=== PATIENT | female | born 1955 | race Caucasian/White ===

== ENCOUNTER 2020-02-24 14:05 | Inpatient (IN) | payer MEDICARE, OTHER ==
--- NOTE | 2020-02-24 14:07 | ERPHSYRPT ---
- History of Present Illness Time Seen by Provider: 02/24/20 14:07 Historian: patient, family Exam Limitations: clinical condition Physician History: This is a 64-year-old white female who presents with approximately 5 to 6-day history of right flank pain and right-sided abdominal pain. Patient has had her gallbladder removed. She has all her other intra-abdominal organs. The pain worsened today. She is also had associated diaphoresis. She denies chest pain and denies shortness of breath. Patient has never had anything like this before. She is nauseous. The pain is now sharp and cramping type pain and unrelenting. She has not had any urinary symptoms other than the flank pain on the right side. She has had no diarrhea. She has had no exposure to nora viduals with similar symptoms. Patient's only medication is meloxicam. She has had no new medications prescribed to her. She is writhing in pain in her hospital bed. Timing/Duration: day(s) (5 to 6 days), worse Activities at Onset: none Quality: cramping, stabbing Abdominal Pain Onset Location: RUQ, RLQ, flank (Right) Pain Radiation: no radiation Severity of Pain-Max: moderate Severity of Pain-Current: moderate Associated Symptoms: back, diaphoresis, nausea, No chest pain, No diarrhea, No fever/chills, No shortness of breath, No vomiting, No weakness Previous symptoms: no prior history Allergies/Adverse Reactions: No Known Drug Allergies Allergy (Unverified 02/24/20 14:07) Home Medications: Meloxicam 1 ea DAILY 02/24/20 [History] Travel Risk - International Travel Have you traveled outside of the country in past 3 weeks: No - Coronavirus Screening Are you exhibiting any of the following symptoms?: No Close contact with a COVID-19 positive Pt in past 14-21 Days: No - Review of Systems Constitutional: No Symptoms Eyes: No Symptoms Ears, Nose, & Throat: No Symptoms Respiratory: No Symptoms, No Cough, No Dyspnea Cardiac: No Symptoms, No Chest Pain Abdominal/Gastrointestinal: Abdominal Pain, Nausea, Vomiting, No Diarrhea, No Constipation Genitourinary Symptoms: Flank Pain (Right side) Musculoskeletal: No Symptoms Skin: No Symptoms Neurological: No Symptoms Psychological: No Symptoms Endocrine: No Symptoms Hematologic/Lymphatic: No Symptoms Immunological/Allergic: No Symptoms All Other Systems: Reviewed and Negative - Past Medical History Neurological History: No Pertinent History ENT History: No Pertinent History Cardiac History: No Pertinent History Respiratory History: No Pertinent History Endocrine Medical History: No Pertinent History Musculoskeletal History: No Pertinent History GI Medical History: No Pertinent History History: No Pertinent History Psycho-Social History: No Pertinent History Female Reproductive Disorders: No Pertinent History - Past Surgical History Neuro Surgical History: No Pertinent History Cardiac: No Pertinent History Respiratory: No Pertinent History Gastrointestinal: No Pertinent History Genitourinary: No Pertinent History Musculoskeletal: No Pertinent History Female Surgical History: No Pertinent History - Nursing Vital Signs Nursing Vital Signs: Initial Vital Signs Pulse Rate 82 02/24/20 14:09 Respiratory Rate 22 02/24/20 14:09 Blood Pressure 127/71 02/24/20 14:09 O2 Sat by Pulse Oximetry 98 02/24/20 14:09 Pain Scale Pain Intensity 4 - Physical Exam General Appearance: moderate distress, alert, anxiety Eye Exam: PERRL/EOMI, eyes nml inspection Ears, Nose, Throat Exam: normal ENT inspection, moist mucous membranes Neck Exam: normal inspection, non-tender, supple, full range of motion Respiratory Exam: normal breath sounds, lungs clear, airway intact, No chest tenderness, No respiratory distress Cardiovascular Exam: regular rate/rhythm, normal heart sounds, normal peripheral pulses Gastrointestinal/Abdomen Exam: soft, normal bowel sounds, tenderness, No guarding, No rebound Pelvic Exam: not done Rectal Exam: not done Back Exam: normal inspection, normal range of motion, CVA tenderness (Right), No vertebral tenderness Extremity Exam: normal inspection, normal range of motion, pelvis stable Neurologic Exam: alert, oriented x 3, cooperative, javascript software engineer II-XII nml as tested, sensation nml Skin Exam: diaphoresis Lymphatic Exam: No adenopathy SpO2 Interpretation: normal O2 Delivery: Room Air - Course Nursing assessment & vital signs reviewed: Yes EKG Interpreted by Me: RATE (64), Sinus Rhythm, NORMAL AXIS, NORMAL INTERVALS, NORMAL QRS, Other (There is not a comparison EKG available. Patient has no evidence of any acute ischemia.) Ordered Tests: Active Orders 24 hr Category Date Time Status EKG-ER Only STAT Care 02/24/20 14:08 Active IV Insertion STAT Care 02/24/20 14:08 Active ABDOMEN AND PELVIS W/0 CONTRAS [CT] Stat Exams 02/24/20 14:19 Taken CHEST 1 VIEW (PORTABLE) Stat Exams 02/24/20 14:09 Taken CHEST WITH CONTRAST [CT] Stat Exams 02/24/20 14:52 Taken AMYLASE Stat Lab 02/24/20 14:15 Completed BLOOD CULTURE Stat Lab 02/24/20 16:51 Ordered CBC W DIFF Stat Lab 02/24/20 14:15 Completed CMP Stat Lab 02/24/20 14:15 Completed D-DIMER QUANTITATIVE Stat Lab 02/24/20 14:15 Completed LIPASE Stat Lab 02/24/20 14:15 Completed Lactic Acid Stat Lab 02/24/20 14:08 Completed Manual Differential NC Stat Lab 02/24/20 14:15 Completed TROPONIN Q3H Lab 02/24/20 14:15 Completed TROPONIN Q3H Lab 02/24/20 16:51 Completed TROPONIN Q3H Lab 02/24/20 20:15 Ordered TROPONIN Q3H Lab 02/24/20 23:15 Ordered TROPONIN Q3H Lab 02/25/20 02:15 Ordered UA W/RFX UR CULTURE Stat Lab 02/24/20 17:26 Completed Transfer Order Routine Transfer 02/24/20 Ordered Medication Summary Generic Name Dose Route Start Last Admin Trade Name Freq PRN Reason Stop Dose Admin Sodium Chloride 1,000 mls @ 100 mls/hr 02/24/20 14:15 02/24/20 14:28 Sodium Chloride 0.9% 1000 Ml IV 03/25/20 14:14 100 mls/hr .Q10H GABRIEL Administration Discontinued Medications Generic Name Dose Route Start Last Admin Trade Name Freq PRN Reason Stop Dose Admin Hydromorphone HCl 1 mg 02/24/20 14:20 02/24/20 14:31 Hydromorphone 1 Mg/Ml Ampule IV 02/24/20 14:21 1 mg STAT ONE Administration Hydromorphone HCl Confirm 02/24/20 14:25 Hydromorphone 1 Mg/Ml Ampule Administered 02/24/20 14:26 Dose 1 mg .ROUTE .STK-MED ONE Ceftriaxone Sodium/Dextrose 1 g in 50 mls @ 100 mls/hr 02/24/20 16:21 02/24/20 17:42 Rocephin 1 Gm-D5w 50 Ml Bag IV 02/24/20 16:50 100 mls/hr STAT STA Infusion Ceftriaxone Sodium/Dextrose Confirm 02/24/20 16:26 Rocephin 1 Gm-D5w 50 Ml Bag Administered 02/24/20 16:27 Dose 1 g in 50 mls @ ud IV .STK-MED ONE Lorazepam 1 mg 02/24/20 15:46 02/24/20 17:13 Ativan 2 Mg/1 Ml Vial IV 02/24/20 15:47 Not Given STAT ONE Lorazepam Confirm 02/24/20 16:10 Ativan 2 Mg/1 Ml Vial Administered 02/24/20 16:11 Dose 2 mg .ROUTE .STK-MED ONE Morphine Sulfate 4 mg 02/24/20 14:50 02/24/20 14:55 Morphine Sulfate 4 Mg Inj IV 02/24/20 14:51 4 mg STAT ONE Administration Morphine Sulfate Confirm 02/24/20 14:54 Morphine Sulfate 4 Mg Inj Administered 02/24/20 14:55 Dose 4 mg .ROUTE .STK-MED ONE Ondansetron HCl 4 mg 02/24/20 14:08 02/24/20 14:30 Zofran 4 Mg/2 Ml Vial IV 02/24/20 14:09 4 mg STAT ONE Administration Ondansetron HCl Confirm 02/24/20 14:24 Zofran 4 Mg/2 Ml Vial Administered 02/24/20 14:25 Dose 4 mg .ROUTE .STK-MED ONE Promethazine HCl 25 mg 02/24/20 16:22 02/24/20 16:27 Phenergan 25 Mg Inj IM 02/24/20 16:23 25 mg STAT ONE Administration Promethazine HCl Confirm 02/24/20 16:26 Phenergan 25 Mg Inj Administered 02/24/20 16:27 Dose 25 mg .ROUTE .STK-MED ONE Lab/Rad Data: Laboratory Result Diagrams 02/24/20 14:15 02/24/20 14:15 Laboratory Results 02/24/20 02/24/20 02/24/20 Range/Units 17:26 17:14 16:51 WBC (4.0-10.5) K/mm3 RBC (4.1-5.4) M/mm3 Hgb (12.0-16.0) gm/dl Hct (35-47) % MCV (78-100) fl MCH (26-32) pg MCHC (32-36) g/dl RDW (11.5-14.0) % Plt Count (150-450) K/mm3 MPV (7.5-11.0) fl Segmented Neutrophils (36.0-66.0) % Band Neutrophils (0.0-2.0) % Lymphocytes (Manual) (24-44) % Monocytes (Manual) (0.0-12.0) % Platelet Estimate (NORMAL) RBC Morphology D-Dimer (215-500) ng/mL Sodium (137-145) mmol/L Potassium (3.5-5.1) mmol/L Chloride (98-107) mmol/L Carbon Dioxide (22-30) mmol/L Anion Gap (5-15) MEQ/L BUN (7-17) mg/dL Creatinine (0.52-1.04) mg/dL Estimated GFR ML/MIN Glucose (74-106) mg/dL Lactic Acid (0.4-2.0) Calcium (8.4-10.2) mg/dL Total Bilirubin (0.2-1.3) mg/dL AST (14-36) U/L ALT (0-35) U/L Alkaline Phosphatase (38-126) U/L Troponin I < 0.012 (0.000-0.034) ng/mL Serum Total Protein (6.3-8.2) g/dL Albumin (3.5-5.0) g/dL Amylase (30-110) U/L Lipase (23-300) U/L Urine Color YELLOW (YELLOW) Urine Appearance CLEAR (CLEAR) Urine pH 5.0 (5-6) Ur Specific [place] 1.010 (1.005-1.025) Urine Protein NEGATIVE (Negative) Urine Ketones SMALL (NEGATIVE) Urine Blood NEGATIVE (0-5) Justus/ul Urine Nitrite NEGATIVE (NEGATIVE) Urine Bilirubin NEGATIVE (NEGATIVE) Urine Urobilinogen 2 (0-1) mg/dL Ur Leukocyte Esterase TRACE (NEGATIVE) Urine WBC (Auto) 3-5 (0-5) /HPF Urine RBC (Auto) 3-5 (0-2) /HPF U Epithel Cells (Auto) RARE (FEW) /HPF Urine Bacteria (Auto) RARE (NEGATIVE) /HPF Urine Mucus (Auto) SLIGHT (NEGATIVE) /HPF Urine Culture Reflexed NO (NO) Urine Glucose NEGATIVE (NEGATIVE) mg/dL SARS-CoV-2 (PCR) POSITIVE A (NEGATIVE) 02/24/20 02/24/20 02/24/20 Range/Units 14:15 14:15 14:15 WBC (4.0-10.5) K/mm3 RBC (4.1-5.4) M/mm3 Hgb (12.0-16.0) gm/dl Hct (35-47) % MCV (78-100) fl MCH (26-32) pg MCHC (32-36) g/dl RDW (11.5-14.0) % Plt Count (150-450) K/mm3 MPV (7.5-11.0) fl Segmented Neutrophils (36.0-66.0) % Band Neutrophils (0.0-2.0) % Lymphocytes (Manual) (24-44) % Monocytes (Manual) (0.0-12.0) % Platelet Estimate (NORMAL) RBC Morphology D-Dimer 1319 H* (215-500) ng/mL Sodium 138 (137-145) mmol/L Potassium 4.0 (3.5-5.1) mmol/L Chloride 101 (98-107) mmol/L Carbon Dioxide 27 (22-30) mmol/L Anion Gap 13.6 (5-15) MEQ/L BUN 24 H (7-17) mg/dL Creatinine 0.85 (0.52-1.04) mg/dL Estimated GFR > 60.0 ML/MIN Glucose 121 H (74-106) mg/dL Lactic Acid (0.4-2.0) Calcium 9.1 (8.4-10.2) mg/dL Total Bilirubin 0.80 (0.2-1.3) mg/dL AST 90 H (14-36) U/L ALT 84 H (0-35) U/L Alkaline Phosphatase 93 (38-126) U/L Troponin I < 0.012 (0.000-0.034) ng/mL Serum Total Protein 7.7 (6.3-8.2) g/dL Albumin 4.4 (3.5-5.0) g/dL Amylase 127 H (30-110) U/L Lipase 214 (23-300) U/L Urine Color (YELLOW) Urine Appearance (CLEAR) Urine pH (5-6) Ur Specific [place] (1.005-1.025) Urine Protein (Negative) Urine Ketones (NEGATIVE) Urine Blood (0-5) Justus/ul Urine Nitrite (NEGATIVE) Urine Bilirubin (NEGATIVE) Urine Urobilinogen (0-1) mg/dL Ur Leukocyte Esterase (NEGATIVE) Urine WBC (Auto) (0-5) /HPF Urine RBC (Auto) (0-2) /HPF U Epithel Cells (Auto) (FEW) /HPF Urine Bacteria (Auto) (NEGATIVE) /HPF Urine Mucus (Auto) (NEGATIVE) /HPF Urine Culture Reflexed (NO) Urine Glucose (NEGATIVE) mg/dL SARS-CoV-2 (PCR) (NEGATIVE) 02/24/20 02/24/20 Range/Units 14:15 14:08 WBC 6.4 (4.0-10.5) K/mm3 RBC 4.58 (4.1-5.4) M/mm3 Hgb 14.5 (12.0-16.0) gm/dl Hct 43.1 (35-47) % MCV 94.1 (78-100) fl MCH 31.7 (26-32) pg MCHC 33.6 (32-36) g/dl RDW 12.7 (11.5-14.0) % Plt Count 182 (150-450) K/mm3 MPV 10.2 (7.5-11.0) fl Segmented Neutrophils 59 (36.0-66.0) % Band Neutrophils 2 (0.0-2.0) % Lymphocytes (Manual) 30 (24-44) % Monocytes (Manual) 9 (0.0-12.0) % Platelet Estimate NORMAL (NORMAL) RBC Morphology NORMAL D-Dimer (215-500) ng/mL Sodium (137-145) mmol/L Potassium (3.5-5.1) mmol/L Chloride (98-107) mmol/L Carbon Dioxide (22-30) mmol/L Anion Gap (5-15) MEQ/L BUN (7-17) mg/dL Creatinine (0.52-1.04) mg/dL Estimated GFR ML/MIN Glucose (74-106) mg/dL Lactic Acid 1.4 (0.4-2.0) Calcium (8.4-10.2) mg/dL Total Bilirubin (0.2-1.3) mg/dL AST (14-36) U/L ALT (0-35) U/L Alkaline Phosphatase (38-126) U/L Troponin I (0.000-0.034) ng/mL Serum Total Protein (6.3-8.2) g/dL Albumin (3.5-5.0) g/dL Amylase (30-110) U/L Lipase (23-300) U/L Urine Color (YELLOW) Urine Appearance (CLEAR) Urine pH (5-6) Ur Specific [place] (1.005-1.025) Urine Protein (Negative) Urine Ketones (NEGATIVE) Urine Blood (0-5) Justus/ul Urine Nitrite (NEGATIVE) Urine Bilirubin (NEGATIVE) Urine Urobilinogen (0-1) mg/dL Ur Leukocyte Esterase (NEGATIVE) Urine WBC (Auto) (0-5) /HPF Urine RBC (Auto) (0-2) /HPF U Epithel Cells (Auto) (FEW) /HPF Urine Bacteria (Auto) (NEGATIVE) /HPF Urine Mucus (Auto) (NEGATIVE) /HPF Urine Culture Reflexed (NO) Urine Glucose (NEGATIVE) mg/dL SARS-CoV-2 (PCR) (NEGATIVE) - Progress Progress: pain not gone completely, re-examined Progress Note: 02/24/20 14:54 Second EKG time was 2:45 PM on 02/24/2020. The heart rate is now 51. 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 There is no evidence of any acute ischemic changes on the current EKG or the one that was performed just prior to this EKG. This is the second EKG. There are no significant changes when compared to the first EKG. 02/24/20 14:56 Chest x-ray reveals no evidence of any acute pulmonary process 02/24/20 16:28 CAT scan of the chest with IV contrast reveals mild to moderate upper and lower bilateral pulmonary opacities consistent with pneumonia. There are no pulmonary emboli and there is no aortic dissection. The CAT scan of the abdomen pelvis shows the moderate lower bilateral pulmonary opacities consistent with pneumonia. There is a normal appendix and no evidence of any acute intra- abdominal process or pathology. Medical decision making: I spoke with Dr. Richey, she is the admitting hospitalist today. Our plan is to admit the patient to the hospital. However, we will obtain a rapid COVID 19 test. If it is positive we will contact the [facility] hospitalist operations administrator for admission. If this is negative then Dr. Velazquez will be admitting this patient into the hospital. We will start her on Rocephin intravenously as well as Zithromax antibiotic. 02/24/20 18:09 Medical decision making: The COVID-19 test returned positive. I spoke with Dr. Vela who will admit the patient into the hospital we will continue Rocephin and azithromycin. We will continue IV hydration duration at a low rate. We will provide pain control and nausea control for her. Counseled pt/family regarding: lab results, diagnosis, rad results - Departure Departure Disposition: In-patient Admission Clinical Impression: Lab test positive for detection of COVID-19 virus, Bilateral pneumonia Condition: Stable Critical Care Time: Yes Critical Care Time(excluding separately billable procedures): Critical 30-74 mins Referrals: DOCTOR,NO FAMILY [Primary Care Provider] -
[2020-02-24] MEDS ORDERED: Zofran 4 MG/2 ML VIAL IV ONE (14:08)
[2020-02-24] MEDS ORDERED: Sodium Chloride 0.9% 1000 ML 1,000 ML IV SCH (14:15)
[2020-02-24] MEDS ORDERED: Hydromorphone 1 mg/ml Ampule IV ONE (14:20)
[2020-02-24] MEDS ORDERED: Zofran 4 MG/2 ML VIAL ONE (14:24)
[2020-02-24] MEDS ORDERED: Hydromorphone 1 mg/ml Ampule ONE (14:25)
[2020-02-24] MEDS ORDERED: Sodium Chloride 0.9% 1000 ML 1,000 ML ONE (14:25)
[2020-02-24 14:30] LABS: Hematocrit 43.1 % (35-47); Hemoglobin 14.5 gm/dl (12.0-16.0); Mean Cell Volume 94.1 fl (78-100); Mean Corpuscular Hemoglobin 31.7 pg (26-32); Mean Corpuscular Hgb Concent. 33.6 g/dl (32-36); Mean Platelet Volume 10.2 fl (7.5-11.0); Platelet Count 182 K/mm3 (150-450); Red Blood Count 4.58 M/mm3 (4.1-5.4); Red Cell Distribution Width 12.7 % (11.5-14.0); White Blood Count 6.4 K/mm3 (4.0-10.5)
[2020-02-24 14:43] LABS: ALBUMIN 4.4 g/dL (3.5-5.0); ALKALINE PHOSPHATASE 93 U/L (38-126); AMYLASE 127 U/L (30-110); ANION GAP 13.6 MEQ/L (5-15); BLOOD UREA NITROGEN 24 mg/dL (7-17); CHLORIDE 101 mmol/L (98-107); Calcium 9.1 mg/dL (8.4-10.2); Carbon Dioxide 27 mmol/L (22-30); Creatinine 1 0.85 mg/dL (0.52-1.04); Glucose 121 mg/dL (74-106); LIPASE 214 U/L (23-300); SGOT/AST 90 U/L (14-36); SGPT/ALT 84 U/L (0-35); SODIUM 138 mmol/L (137-145); Total Protein 7.7 g/dL (6.3-8.2)
[2020-02-24] MEDS ORDERED: MORPHINE SULFATE 4 MG INJ IV ONE (14:50)
[2020-02-24] MEDS ORDERED: MORPHINE SULFATE 4 MG INJ ONE (14:54)
[2020-02-24 15:02] LABS: BAND 2 % (0.0-2.0); Lymphocytes 30 % (24-44); Monocyte 9 % (0.0-12.0); Neutrophils 59 % (36.0-66.0); Platelet Estimate NORMAL (NORMAL); Total Cells Counted 100
[2020-02-24] MEDS ORDERED: Ativan 2 MG/1 ML VIAL ONE (16:10)
[2020-02-24] MEDS: Ativan 2 MG/1 ML VIAL IV ONE ×2 (16:12→17:13)
[2020-02-24] MEDS ORDERED: ROCEPHIN 1 Gm-D5w 50 ml Bag** 1 G/50 ML IVPB IV STA (16:21)
[2020-02-24] MEDS ORDERED: Phenergan 25 MG INJ IM ONE (16:22)
[2020-02-24] MEDS ORDERED: ROCEPHIN 1 Gm-D5w 50 ml Bag** 1 G/50 ML IVPB IV ONE (16:26)
[2020-02-24] MEDS ORDERED: Phenergan 25 MG INJ ONE (16:26)
[2020-02-24 17:35] LABS: Appearance CLEAR (CLEAR); Bacteria RARE /HPF (NEGATIVE); Bilirubin NEGATIVE (NEGATIVE); Blood NEGATIVE Ery/ul (0-5); Epithelial Cells RARE /HPF (FEW); Glucose NEGATIVE (NEGATIVE); Ketones SMALL (NEGATIVE); Leukocyte Esterase TRACE (NEGATIVE); Mucus SLIGHT /HPF (NEGATIVE); Nitrite NEGATIVE (NEGATIVE); Protein,Urine Dip NEGATIVE (Negative); Urobilinogen 2 mg/dL (0-1)
[2020-02-24] MEDS ORDERED: FEVERALL 650 MG PR PRN (19:23)
--- NOTE | 2020-02-24 19:55 | XRAY ---
Indication: Right upper and flank pain. Elevated d-dimer. Multiple contiguous axial images obtained through the chest using 100 cc Isovue 370 contrast and PE protocol. Comparison: None There is satisfactory opacification of the pulmonary arteries to include the lobar and segmental branches. No filling defect or pulmonary embolus. Heart is borderline enlarged. Aorta is minimally arteriosclerotic without aneurysm/dissection. Tiny mediastinal and right hilar calcified nodes. No pathologic mediastinal/hilar lymphadenopathy. Small hiatal hernia. Examination of the lung parenchyma demonstrates moderate bilateral dependent atelectasis and a few tiny bilateral calcified granulomas. Diffuse patchy airspace disease bilaterally without effusion. Bony thorax intact. CT abdomen/pelvis reported separately. Impression: 1. Negative pulmonary embolus. 2. Diffuse bilateral airspace disease. 3. Incidental hiatal hernia and old granulomatous disease. Comment: Preliminary interpretation was made by [facility]. No critical discrepancy.
--- NOTE | 2020-02-24 19:57 | XRAY ---
Indication: Right-sided pain. Comparison: June 08, 2011. Portable chest less inflated with new subtle bilateral patchy airspace disease confirmed on same day CT chest exam. Stable right lung calcified granulomas. Heart borderline enlarged. Bony thorax intact again with mild degenerative changes.
--- NOTE | 2020-02-24 20:01 | XRAY ---
Indication: Right upper and flank pain. Elevated d-dimer. Multiple contiguous axial images obtained through the abdomen and pelvis without contrast as ordered. Comparison: None CT chest reported separately. Noncontrasted stomach and bowel loops appear nonobstructed. Normal appendix. Mild descending and sigmoid diverticulosis. Previous cholecystectomy. A few bilateral renal cysts, largest right midpole measuring 2.7 cm. Tiny calcified uterine fibroid. No free fluid/air. Remaining liver, pancreas, spleen, adrenal glands, kidneys, ureters, bladder, and uterus unremarkable for noncontrast exam. Mild aortic calcifications without AAA. Osseous structures intact. No ventral or inguinal hernias. Impression: 1. Colonic diverticulosis, bilateral renal cysts, and tiny calcified uterine fibroid. 2. Remaining CT abdomen/pelvis without contrast exam is negative. Comment: Preliminary interpretation was made by [facility]. No critical discrepancy.
[2020-02-24] MEDS: Sodium Chloride 0.9% 1000 ML 1,000 ML IV SCH (21:41)
[2020-02-24] MEDS: MORPHINE SULFATE 4 MG INJ IV PRN (21:51)
[2020-02-24] MEDS: Zofran 4 MG/2 ML VIAL IV PRN (21:52)
[2020-02-24] MEDS ORDERED: solu-MEDROL 125 MG IV ONE (22:02)
[2020-02-25] MEDS: Sodium Chloride 0.9% 1000 ML 1,000 ML IV SCH (03:23)
[2020-02-25] MEDS: Zofran 4 MG/2 ML VIAL IV PRN (03:48)
[2020-02-25] MEDS: MORPHINE SULFATE 4 MG INJ IV PRN (03:49)
[2020-02-25 05:03] LABS: Hemoglobin 14.2 gm/dl (12.0-16.0); Mean Cell Volume 94.4 fl (78-100); Mean Corpuscular Hemoglobin 31.9 pg (26-32); Mean Corpuscular Hgb Concent. 33.8 g/dl (32-36); Mean Platelet Volume 10.5 fl (7.5-11.0); Platelet Count 169 K/mm3 (150-450); Red Blood Count 4.45 M/mm3 (4.1-5.4); Red Cell Distribution Width 12.8 % (11.5-14.0); White Blood Count 5.7 K/mm3 (4.0-10.5)
[2020-02-25 05:18] LABS: ALKALINE PHOSPHATASE 214 U/L (38-126); BLOOD UREA NITROGEN 18 mg/dL (7-17); CHLORIDE 104 mmol/L (98-107); Calcium 8.7 mg/dL (8.4-10.2); Carbon Dioxide 28 mmol/L (22-30); Creatinine 1 0.65 mg/dL (0.52-1.04); Glucose 187 mg/dL (74-106); SGOT/AST 207 U/L (14-36); SGPT/ALT 179 U/L (0-35); SODIUM 139 mmol/L (137-145); Total Protein 7.3 g/dL (6.3-8.2)
[2020-02-25 05:32] LABS: Potassium 5.1 mmol/L (3.5-5.1)
[2020-02-25 07:53] LABS: BAND 6 % (0.0-2.0); Lymphocytes 10 % (24-44); Monocyte 2 % (0.0-12.0); Neutrophils 82 % (36.0-66.0); Platelet Estimate NORMAL (NORMAL); Total Cells Counted 100
--- NOTE | 2020-02-25 08:06 | PCM.HP ---
History of Present Illness - Chief Complaint Chief Complaint: Covid +, Pneumonia Date: 02/25/20 History of Present Illness: is a 64 year old female. Presented to ER last evening with complaints of bilateral lower abdominal pain and flank pain for the past 6 days. Pt. notes the pain was getting worse and prompted her to go to ER. Pt. notes she had bilateral knee injections last Tuesday at [facility]. Pt. denies any fevers, cough, or other symptoms outside of the sharp pain. - Review of Systems Constitutional: No Fever, No Chills Eyes: No Symptoms Ears, Nose, & Throat: No Symptoms Respiratory: No Cough, No Short Of Breath Cardiac: No Chest Pain, No Edema, No Syncope Abdominal/Gastrointestinal: Abdominal Pain Genitourinary Symptoms: No Dysuria Musculoskeletal: Back Pain Skin: No Rash Neurological: No Dizziness, No Focal Weakness, No Sensory Changes Psychological: No Symptoms Hematologic/Lymphatic: No Symptoms Medications & Allergies Home Medications: Home Medication List Meloxicam 1 tab PO HS 02/24/20 [History Confirmed 02/24/20] Allergies/Adverse Reactions: Allergies Allergy/AdvReac Type Severity Reaction Status Date / Time No Known Drug Allergies Allergy Unverified 02/24/20 14:07 - Past Medical History Past Medical History: Yes Neurological History: No Pertinent History ENT History: No Pertinent History Cardiac History: No Pertinent History Respiratory History: No Pertinent History Endocrine Medical History: No Pertinent History Musculoskelatal History: No Pertinent History GI Medical History: No Pertinent History History: No Pertinent History Pyscho-Social History: No Pertinent History Reproductive Disorders: No Pertinent History - Female History Hx Last Menstrual Period: post Are you now?: No - Past Surgical History Past Surgical History: Yes Neuro Surgical History: No Pertinent History Cardiac History: No Pertinent History Respiratory Surgery: No Pertinent History GI Surgical History: No Pertinent History Genitourinary Surgical Hx: No Pertinent History Musculskeletal Surgical Hx: No Pertinent History Female Surgical History: No Pertinent History Other Surgical History: foot surgery - Social History Smoking Status: Never smoker Exposure to second hand smoke: No Alcohol: None Drug Use: none - Physical Exam Vital Signs: Vital Signs - 24 hr Temp Pulse Resp BP Pulse Ox 02/25/20 07:50 92 L 02/25/20 06:00 97.6 F 70 14 128/64 92 L 07/13/20 04:00 97.6 F 70 14 147/73 92 L 02/25/20 01:57 97.6 F 57 L 14 123/59 92 L 02/25/20 00:00 54 L 14 93 L 02/24/20 21:46 97.6 F 58 L 13 128/65 94 L 02/24/20 21:30 61 18 94 L 02/24/20 20:48 97.8 F 60 16 124/65 90 L 02/24/20 19:23 90 L 02/24/20 19:19 78 22 124/58 98 02/24/20 17:42 98.1 F 64 22 121/61 98 02/24/20 16:21 98.1 F 50 L 20 156/66 96 02/24/20 15:45 62 18 168/68 94 L 02/24/20 14:57 48 L 16 157/72 92 L 02/24/20 14:09 82 22 127/71 98 General Appearance: no apparent distress Neurologic Exam: alert, cooperative, normal mood/affect Eye Exam: PERRL/EOMI, eyes nml inspection Ears, Nose, Throat Exam: normal ENT inspection, moist mucous membranes Neck Exam: normal inspection, non-tender, supple, full range of motion, No meningismus Respiratory Exam: normal breath sounds, lungs clear, No chest tenderness, No respiratory distress Cardiovascular Exam: regular rate/rhythm, normal heart sounds, normal peripheral pulses, No murmur Gastrointestinal/Abdomen Exam: soft, normal bowel sounds, tenderness, No distention, No mass, No guarding Pelvic Exam: not done Rectal Exam: deferred Back Exam: normal inspection Extremity Exam: normal inspection, normal range of motion, No calf tenderness Skin Exam: normal color, warm, dry, No rash, No petechiae Lymphatic Exam: No adenopathy Results - Labs Lab/Micro Results: Lab Results-Last 24 Hours 02/24/20 02/24/20 02/24/20 Range/Units 14:08 14:15 14:15 WBC 6.4 (4.0-10.5) K/mm3 RBC 4.58 (4.1-5.4) M/mm3 Hgb 14.5 (12.0-16.0) gm/dl Hct 43.1 (35-47) % MCV 94.1 (78-100) fl MCH 31.7 (26-32) pg MCHC 33.6 (32-36) g/dl RDW 12.7 (11.5-14.0) % Plt Count 182 (150-450) K/mm3 MPV 10.2 (7.5-11.0) fl Segmented Neutrophils 59 (36.0-66.0) % Band Neutrophils 2 (0.0-2.0) % Lymphocytes (Manual) 30 (24-44) % Monocytes (Manual) 9 (0.0-12.0) % Platelet Estimate NORMAL (NORMAL) RBC Morphology NORMAL D-Dimer (215-500) ng/mL Sodium 138 (137-145) mmol/L Potassium 4.0 (3.5-5.1) mmol/L Chloride 101 (98-107) mmol/L Carbon Dioxide 27 (22-30) mmol/L Anion Gap 13.6 (5-15) MEQ/L BUN 24 H (7-17) mg/dL Creatinine 0.85 (0.52-1.04) mg/dL Estimated GFR > 60.0 ML/MIN Glucose 121 H (74-106) mg/dL Lactic Acid 1.4 (0.4-2.0) Calcium 9.1 (8.4-10.2) mg/dL Total Bilirubin 0.80 (0.2-1.3) mg/dL AST 90 H (14-36) U/L ALT 84 H (0-35) U/L Alkaline Phosphatase 93 (38-126) U/L Troponin I (0.000-0.034) ng/mL Serum Total Protein 7.7 (6.3-8.2) g/dL Albumin 4.4 (3.5-5.0) g/dL Amylase 127 H (30-110) U/L Lipase 214 (23-300) U/L Urine Color (YELLOW) Urine Appearance (CLEAR) Urine pH (5-6) Ur Specific [place] (1.005-1.025) Urine Protein (Negative) Urine Ketones (NEGATIVE) Urine Blood (0-5) Justus/ul Urine Nitrite (NEGATIVE) Urine Bilirubin (NEGATIVE) Urine Urobilinogen (0-1) mg/dL Ur Leukocyte Esterase (NEGATIVE) Urine WBC (Auto) (0-5) /HPF Urine RBC (Auto) (0-2) /HPF U Epithel Cells (Auto) (FEW) /HPF Urine Bacteria (Auto) (NEGATIVE) /HPF Urine Mucus (Auto) (NEGATIVE) /HPF Urine Culture Reflexed (NO) Urine Glucose (NEGATIVE) mg/dL SARS-CoV-2 (PCR) (NEGATIVE) 02/24/20 02/24/20 02/24/20 Range/Units 14:15 14:15 16:51 WBC (4.0-10.5) K/mm3 RBC (4.1-5.4) M/mm3 Hgb (12.0-16.0) gm/dl Hct (35-47) % MCV (78-100) fl MCH (26-32) pg MCHC (32-36) g/dl RDW (11.5-14.0) % Plt Count (150-450) K/mm3 MPV (7.5-11.0) fl Segmented Neutrophils (36.0-66.0) % Band Neutrophils (0.0-2.0) % Lymphocytes (Manual) (24-44) % Monocytes (Manual) (0.0-12.0) % Platelet Estimate (NORMAL) RBC Morphology D-Dimer 1319 H* (215-500) ng/mL Sodium (137-145) mmol/L Potassium (3.5-5.1) mmol/L Chloride (98-107) mmol/L Carbon Dioxide (22-30) mmol/L Anion Gap (5-15) MEQ/L BUN (7-17) mg/dL Creatinine (0.52-1.04) mg/dL Estimated GFR ML/MIN Glucose (74-106) mg/dL Lactic Acid (0.4-2.0) Calcium (8.4-10.2) mg/dL Total Bilirubin (0.2-1.3) mg/dL AST (14-36) U/L ALT (0-35) U/L Alkaline Phosphatase (38-126) U/L Troponin I < 0.012 < 0.012 (0.000-0.034) ng/mL Serum Total Protein (6.3-8.2) g/dL Albumin (3.5-5.0) g/dL Amylase (30-110) U/L Lipase (23-300) U/L Urine Color (YELLOW) Urine Appearance (CLEAR) Urine pH (5-6) Ur Specific [place] (1.005-1.025) Urine Protein (Negative) Urine Ketones (NEGATIVE) Urine Blood (0-5) Justus/ul Urine Nitrite (NEGATIVE) Urine Bilirubin (NEGATIVE) Urine Urobilinogen (0-1) mg/dL Ur Leukocyte Esterase (NEGATIVE) Urine WBC (Auto) (0-5) /HPF Urine RBC (Auto) (0-2) /HPF U Epithel Cells (Auto) (FEW) /HPF Urine Bacteria (Auto) (NEGATIVE) /HPF Urine Mucus (Auto) (NEGATIVE) /HPF Urine Culture Reflexed (NO) Urine Glucose (NEGATIVE) mg/dL SARS-CoV-2 (PCR) (NEGATIVE) 02/24/20 02/24/20 02/25/20 Range/Units 17:14 17:26 04:35 WBC 5.7 (4.0-10.5) K/mm3 RBC 4.45 (4.1-5.4) M/mm3 Hgb 14.2 (12.0-16.0) gm/dl Hct 42.0 (35-47) % MCV 94.4 (78-100) fl MCH 31.9 (26-32) pg MCHC 33.8 (32-36) g/dl RDW 12.8 (11.5-14.0) % Plt Count 169 (150-450) K/mm3 MPV 10.5 (7.5-11.0) fl Segmented Neutrophils 82 H (36.0-66.0) % Band Neutrophils 6 H (0.0-2.0) % Lymphocytes (Manual) 10 L (24-44) % Monocytes (Manual) 2 (0.0-12.0) % Platelet Estimate NORMAL (NORMAL) RBC Morphology NORMAL D-Dimer (215-500) ng/mL Sodium (137-145) mmol/L Potassium (3.5-5.1) mmol/L Chloride (98-107) mmol/L Carbon Dioxide (22-30) mmol/L Anion Gap (5-15) MEQ/L BUN (7-17) mg/dL Creatinine (0.52-1.04) mg/dL Estimated GFR ML/MIN Glucose (74-106) mg/dL Lactic Acid (0.4-2.0) Calcium (8.4-10.2) mg/dL Total Bilirubin (0.2-1.3) mg/dL AST (14-36) U/L ALT (0-35) U/L Alkaline Phosphatase (38-126) U/L Troponin I (0.000-0.034) ng/mL Serum Total Protein (6.3-8.2) g/dL Albumin (3.5-5.0) g/dL Amylase (30-110) U/L Lipase (23-300) U/L Urine Color YELLOW (YELLOW) Urine Appearance CLEAR (CLEAR) Urine pH 5.0 (5-6) Ur Specific [place] 1.010 (1.005-1.025) Urine Protein NEGATIVE (Negative) Urine Ketones SMALL (NEGATIVE) Urine Blood NEGATIVE (0-5) Justus/ul Urine Nitrite NEGATIVE (NEGATIVE) Urine Bilirubin NEGATIVE (NEGATIVE) Urine Urobilinogen 2 (0-1) mg/dL Ur Leukocyte Esterase TRACE (NEGATIVE) Urine WBC (Auto) 3-5 (0-5) /HPF Urine RBC (Auto) 3-5 (0-2) /HPF U Epithel Cells (Auto) RARE (FEW) /HPF Urine Bacteria (Auto) RARE (NEGATIVE) /HPF Urine Mucus (Auto) SLIGHT (NEGATIVE) /HPF Urine Culture Reflexed NO (NO) Urine Glucose NEGATIVE (NEGATIVE) mg/dL SARS-CoV-2 (PCR) POSITIVE A (NEGATIVE) 02/25/20 Range/Units 04:35 WBC (4.0-10.5) K/mm3 RBC (4.1-5.4) M/mm3 Hgb (12.0-16.0) gm/dl Hct (35-47) % MCV (78-100) fl MCH (26-32) pg MCHC (32-36) g/dl RDW (11.5-14.0) % Plt Count (150-450) K/mm3 MPV (7.5-11.0) fl Segmented Neutrophils (36.0-66.0) % Band Neutrophils (0.0-2.0) % Lymphocytes (Manual) (24-44) % Monocytes (Manual) (0.0-12.0) % Platelet Estimate (NORMAL) RBC Morphology D-Dimer (215-500) ng/mL Sodium 139 (137-145) mmol/L Potassium 5.1 D (3.5-5.1) mmol/L Chloride 104 (98-107) mmol/L Carbon Dioxide 28 (22-30) mmol/L Anion Gap 12.0 (5-15) MEQ/L BUN 18 H (7-17) mg/dL Creatinine 0.65 (0.52-1.04) mg/dL Estimated GFR > 60.0 ML/MIN Glucose 187 H (74-106) mg/dL Lactic Acid (0.4-2.0) Calcium 8.7 (8.4-10.2) mg/dL Total Bilirubin 0.60 (0.2-1.3) mg/dL AST 207 H (14-36) U/L ALT 179 H (0-35) U/L Alkaline Phosphatase 214 H (38-126) U/L Troponin I (0.000-0.034) ng/mL Serum Total Protein 7.3 (6.3-8.2) g/dL Albumin 4.0 (3.5-5.0) g/dL Amylase (30-110) U/L Lipase (23-300) U/L Urine Color (YELLOW) Urine Appearance (CLEAR) Urine pH (5-6) Ur Specific [place] (1.005-1.025) Urine Protein (Negative) Urine Ketones (NEGATIVE) Urine Blood (0-5) Justus/ul Urine Nitrite (NEGATIVE) Urine Bilirubin (NEGATIVE) Urine Urobilinogen (0-1) mg/dL Ur Leukocyte Esterase (NEGATIVE) Urine WBC (Auto) (0-5) /HPF Urine RBC (Auto) (0-2) /HPF U Epithel Cells (Auto) (FEW) /HPF Urine Bacteria (Auto) (NEGATIVE) /HPF Urine Mucus (Auto) (NEGATIVE) /HPF Urine Culture Reflexed (NO) Urine Glucose (NEGATIVE) mg/dL SARS-CoV-2 (PCR) (NEGATIVE) - Radiology Impressions Radiology Exams & Impressions: Radiology Procedures Category Date Time Status ABDOMEN AND PELVIS W/0 CONTRAS [CT] Stat Exams 02/24/20 14:19 Completed CHEST 1 VIEW (PORTABLE) Stat Exams 02/24/20 14:09 Completed CHEST WITH CONTRAST [CT] Stat Exams 02/24/20 14:52 Completed - Other Procedures and Tests Respiratory Therapy 02/24/20 20:43 Oxygen Nasal Cannula 2 lpm Assessment/Plan (1) Bilateral pneumonia Current Visit: Yes Status: Acute Assessment & Plan: Pt. admitted to covid unit on Rocephin and Azithromycin, will add IV Solumedrol as her oxygen level is about 92-93% on 3 L NC Code(s): J18.9 - PNEUMONIA, UNSPECIFIED ORGANISM (2) Lab test positive for detection of COVID-19 virus Current Visit: Yes Status: Acute Code(s): U07.1 - COVID-19
[2020-02-25] MEDS ORDERED: HUMULIN R SQ PRN (08:09)
[2020-02-25] MEDS: solu-MEDROL 125 MG IV SCH ×3 (09:05→21:24)
[2020-02-25] MEDS: ROCEPHIN 1 Gm-D5w 50 ml Bag** 1 G/50 ML IVPB IV SCH (09:14)
[2020-02-25] MEDS: Zithromax 500 MG/ 250 ML NaCl Premix 500 MG/250 ML IVPB IV SCH (10:08)
[2020-02-25] MEDS ORDERED: PHARMACY DOSING REQUEST MC ONE (12:47)
[2020-02-25] MEDS ORDERED: REMDESIVIR 200 MG in Sodium Chloride 0.9% 250 ML 250 ML IV ONE (13:30)
[2020-02-25] MEDS: ENOXAPARIN SODIUM SQ SCH (13:47)
[2020-02-25] MEDS ORDERED: REMDESIVIR IV ONE (14:00)
[2020-02-26] MEDS: ENOXAPARIN SODIUM SQ SCH ×2 (01:24→14:04)
[2020-02-26] MEDS: Sodium Chloride 0.9% 1000 ML 1,000 ML IV SCH (03:51)
[2020-02-26] MEDS: solu-MEDROL 125 MG IV SCH ×3 (05:36→21:10)
[2020-02-26] MEDS: ROCEPHIN 1 Gm-D5w 50 ml Bag** 1 G/50 ML IVPB IV SCH (09:59)
[2020-02-26] MEDS: TYLENOL 325 MG PO PRN (09:59)
[2020-02-26] MEDS: Zithromax 500 MG/ 250 ML NaCl Premix 500 MG/250 ML IVPB IV SCH (10:06)
--- NOTE | 2020-02-26 10:07 | PCM.NOTE ---
Date and Time: 02/26/20 1004 Subjective Assessment: Pt. up in chair, reports feeling better. Pt. wanting to go home. Pt. notes productive cough has started. - Review of Systems Constitutional: No Fever, No Chills Ears, Nose, & Throat: No Symptoms Respiratory: Cough Cardiac: No Chest Pain, No Edema, No Syncope Abdominal/Gastrointestinal: No Abdominal Pain, No Nausea, No Vomiting, No Diarrhea Genitourinary Symptoms: No Dysuria Musculoskeletal: Back Pain Skin: No Rash Objective Exam General Appearance: no apparent distress, alert Neurologic Exam: alert, cooperative Skin Exam: normal color, warm, dry Eye Exam: EOMI Neck Exam: normal inspection, non-tender Respiratory Exam: normal breath sounds, diminished breath sounds Cardiovascular Exam: regular rate/rhythm, normal heart sounds Gastrointestinal/Abdomen Exam: soft OBJECTIVE DATA Vital Signs: Vital Signs - 24 hr Temp Pulse Resp BP Pulse Ox 02/26/20 09:00 97.9 F 60 15 139/76 92 L 02/26/20 08:00 60 16 91 L 02/26/20 07:56 98.1 F 51 L 18 140/66 94 L 02/26/20 07:37 92 L 02/26/20 07:00 21 02/26/20 06:00 98.3 F 60 20 145/67 93 L 02/26/20 05:00 15 02/26/20 03:59 50 L 17 02/26/20 03:58 17 02/26/20 03:00 20 02/26/20 02:00 20 02/26/20 01:36 97.8 F 65 20 148/67 91 L 02/26/20 01:00 22 02/26/20 00:00 55 L 21 90 L 02/25/20 23:00 19 02/25/20 22:12 98.5 F 62 14 144/68 90 L 02/25/20 22:00 14 02/25/20 21:00 14 02/25/20 19:56 97.9 F 68 14 138/67 91 L 02/25/20 19:48 14 02/25/20 19:33 91 L 02/25/20 18:54 22 02/25/20 18:00 22 02/25/20 17:48 98.1 F 60 22 147/68 90 L 02/25/20 17:00 18 02/25/20 16:00 16 07/13/20 15:57 98.1 F 70 20 147/68 97 02/25/20 14:25 20 02/25/20 14:00 20 02/25/20 13:47 97.6 F 66 20 121/56 91 L 02/25/20 12:49 17 02/25/20 12:00 28 H 02/25/20 11:00 28 H 02/25/20 10:10 97.9 F 61 16 124/60 91 L Oxygen-Last 24 hours Oxygen Flowrate (L/min)-RT 4 Oxygen Flowrate (L/min)-RT 4 Oxygen Flowrate (L/min)-RT 5 Oxygen Flowrate (L/min)-RT 5 Oxygen Flowrate (L/min)-RT 3 Oxygen Flowrate (L/min)-RT 3 Oxygen Flowrate (L/min)-RT 3 Oxygen Flowrate (L/min)-RT 4 Pain Assessment - Last Documented Pain Intensity 4 Pain Scale Used 0-10 Pain Scale Intake and Output: Intake & Output 02/23/20 02/24/20 02/25/20 02/26/20 11:59 11:59 11:59 11:59 Intake Total 530 4271 Output Total 500 250 Balance 30 4021 Weight 66 kg 66.1 kg Lab Results: Accuchecks Date 02/26/20 Date 02/25/20 Date 02/25/20 Time 07:30 Time 22:00 Time 16:13 Accucheck Value: 162 Accucheck Value: 137 Accucheck Value: 168 Accucheck Value: 159 Radiology Exams: Radiology Procedures Category Date Time Status ABDOMEN AND PELVIS W/0 CONTRAS [CT] Stat Exams 02/24/20 14:19 Completed CHEST 1 VIEW (PORTABLE) Stat Exams 02/24/20 14:09 Completed CHEST WITH CONTRAST [CT] Stat Exams 02/24/20 14:52 Completed Multi-Disciplinary Progress Notes: Multi-Disciplinary Progress Notes 02/26/20 08:56 Case Management Note by Cassandra Zamora PATIENT STILL ACUTELY ILL, WILL CONTINUE TO FOLLOW Initialized on 02/26/20 08:56 - END OF NOTE Assessment/Plan (1) Bilateral pneumonia Current Visit: Yes Status: Acute Assessment & Plan: Continue iv abx, wean oxygen as tolerated. Code(s): J18.9 - PNEUMONIA, UNSPECIFIED ORGANISM (2) Lab test positive for detection of COVID-19 virus Current Visit: Yes Status: Acute Assessment & Plan: on antiviral for covid Code(s): U07.1 - COVID-19
[2020-02-26] MEDS ORDERED: Tums EX 750 MG PO PRN (11:03)
[2020-02-26] MEDS: Protonix 20MG Tablet PO SCH (11:59)
[2020-02-26] MEDS: REMDESIVIR 100 MG in Sodium Chloride 0.9% 100 ML IVPB 100 ML IV SCH (13:08)
[2020-02-26] MEDS ORDERED: Sodium Chloride 0.9% 100 ML IVPB 100 ML IV ONE (13:59)
[2020-02-27] MEDS: ENOXAPARIN SODIUM SQ SCH ×2 (02:17→13:52)
[2020-02-27 05:18] LABS: Hematocrit 38.6 % (35-47); Hemoglobin 12.8 gm/dl (12.0-16.0); Mean Cell Volume 95.1 fl (78-100); Mean Corpuscular Hemoglobin 31.5 pg (26-32); Mean Corpuscular Hgb Concent. 33.2 g/dl (32-36); Mean Platelet Volume 10.7 fl (7.5-11.0); Platelet Count 204 K/mm3 (150-450); Red Blood Count 4.06 M/mm3 (4.1-5.4); Red Cell Distribution Width 12.3 % (11.5-14.0); White Blood Count 12.9 K/mm3 (4.0-10.5)
[2020-02-27 05:34] LABS: ANION GAP 8.3 MEQ/L (5-15); BLOOD UREA NITROGEN 20 mg/dL (7-17); CHLORIDE 107 mmol/L (98-107); Calcium 8.3 mg/dL (8.4-10.2); Carbon Dioxide 27 mmol/L (22-30); Creatinine 1 0.55 mg/dL (0.52-1.04); Glucose 145 mg/dL (74-106); Potassium 3.5 mmol/L (3.5-5.1); SODIUM 139 mmol/L (137-145)
[2020-02-27] MEDS: solu-MEDROL 125 MG IV SCH ×3 (05:39→22:02)
[2020-02-27] MEDS: MORPHINE SULFATE 4 MG INJ IV PRN (05:47)
[2020-02-27] MEDS: Protonix 20MG Tablet PO SCH (08:22)
[2020-02-27] MEDS: TYLENOL 325 MG PO PRN (08:23)
--- NOTE | 2020-02-27 08:43 | XRAY ---
Indication: Pneumonia. Suspect Covid 19. Comparison: February 24, 2020. Portable chest overpenetrated in technique limiting exam. Probable stable bilateral patchy airspace disease. Heart is not enlarged. No new cardiopulmonary abnormalities.
--- NOTE | 2020-02-27 09:57 | PCM.NOTE ---
Date and Time: 02/27/20954 Subjective Assessment: Pt. not feeling as well today, notes abdominal pain today, and oxygen has been increased - Review of Systems Constitutional: No Symptoms Ears, Nose, & Throat: No Symptoms Respiratory: Cough Cardiac: No Chest Pain, No Edema, No Syncope Abdominal/Gastrointestinal: Abdominal Pain Genitourinary Symptoms: No Dysuria Musculoskeletal: No Back Pain, No Neck Pain Skin: No Rash Objective Exam General Appearance: no apparent distress Neurologic Exam: alert, cooperative Skin Exam: normal color, warm, dry Eye Exam: EOMI Neck Exam: normal inspection, non-tender Respiratory Exam: normal breath sounds Cardiovascular Exam: regular rate/rhythm Gastrointestinal/Abdomen Exam: soft, tenderness (RUQ) Extremity Exam: normal inspection OBJECTIVE DATA Vital Signs: Vital Signs - 24 hr Temp Pulse Resp BP Pulse Ox 02/27/20 08:56 44 L 16 148/65 02/27/20 07:55 16 02/27/20 07:02 92 L 02/27/20 06:32 46 L 16 148/65 89 L 02/27/20 05:36 16 02/27/20 04:51 97.6 F 45 L 16 148/65 90 L 02/27/20 03:34 20 02/27/20 02:35 42 L 16 158/69 91 L 02/27/20 01:32 16 02/27/20 00:32 42 L 16 158/69 96 02/26/20 23:52 93 L 02/26/20 23:06 18 02/26/20 22:30 65 18 158/69 94 L 02/26/20 21:34 18 02/26/20 21:00 97.9 F 50 L 18 158/69 95 02/26/20 20:00 20 02/26/20 19:00 54 L 18 154/75 93 L 02/26/20 17:42 20 02/26/20 16:56 16 02/26/20 16:18 97.8 F 63 14 154/75 90 L 02/26/20 16:00 23 02/26/20 14:53 97.8 F 64 22 146/73 93 L 02/26/20 14:48 97.8 F 64 22 146/73 93 L 02/26/20 14:00 14 02/26/20 13:00 64 17 96 02/26/20 12:00 13 02/26/20 10:53 18 02/26/20 10:41 97.8 F 57 L 14 137/67 95 02/26/20 10:00 14 Oxygen-Last 24 hours Oxygen Flowrate (L/min)-RT 94 Oxygen Flowrate (L/min)-RT 5 Oxygen Flowrate (L/min)-RT 4 Oxygen Flowrate (L/min)-RT 4 Oxygen Flowrate (L/min)-RT 4 Oxygen Flowrate (L/min)-RT 4 Oxygen Flowrate (L/min)-RT 4 Oxygen Flowrate (L/min)-RT 4 Pain Assessment - Last Documented Pain Intensity 3 Pain Scale Used [facility] Intake and Output: Intake & Output 02/24/20 02/25/20 02/26/20 02/27/20 11:59 11:59 11:59 11:59 Intake Total 530 4271 2413 Output Total 500 250 950 Balance 30 4021 1463 Weight 66 kg 66.1 kg 79.2 kg Lab Results: Accuchecks Date 02/27/20 Date 02/26/20 Date 02/26/20 Date 02/26/20 Time 06:00 Time 21:15 Time 16:30 Time 11:30 Accucheck Value: 145 Accucheck Value: 160 Accucheck Value: 132 Accucheck Value: 212 Lab Results-Last 24 Hours 02/26/20 02/27/20 02/27/20 Range/Units 17:38 04:55 04:55 WBC 12.9 H (4.0-10.5) K/mm3 RBC 4.06 L (4.1-5.4) M/mm3 Hgb 12.8 (12.0-16.0) gm/dl Hct 38.6 (35-47) % MCV 95.1 (78-100) fl MCH 31.5 (26-32) pg MCHC 33.2 (32-36) g/dl RDW 12.3 (11.5-14.0) % Plt Count 204 (150-450) K/mm3 MPV 10.7 (7.5-11.0) fl Sodium 139 (137-145) mmol/L Potassium 3.5 (3.5-5.1) mmol/L Chloride 107 (98-107) mmol/L Carbon Dioxide 27 (22-30) mmol/L Anion Gap 8.3 (5-15) MEQ/L BUN 20 H (7-17) mg/dL Creatinine 0.55 (0.52-1.04) mg/dL Estimated GFR > 60.0 ML/MIN Glucose 145 H (74-106) mg/dL Hemoglobin A1c 5.74 (4.5-6.0) % Calcium 8.3 L (8.4-10.2) mg/dL Radiology Exams: Radiology Procedures Category Date Time Status CHEST 1 VIEW (PORTABLE) AM.LAB Exams 02/27/20 04:00 Completed CHEST 1 VIEW (PORTABLE) AM.LAB Exams 02/28/20 04:00 Ordered Multi-Disciplinary Progress Notes: Multi-Disciplinary Progress Notes 02/27/20 08:48 Case Management Note by Cassandra Zamora NO CHANGE IN DC PLANS, WILL CONTINUE TO FOLLOW Initialized on 02/27/20 08:48 - END OF NOTE 02/27/20 07:27 Respiratory Note by Malissa,Tammy PATIENT IS DOING INCENTIVE SPIROMETRY ON OWN. DOING WELL. Initialized on 02/27/20 07:27 - END OF NOTE Assessment/Plan (1) Bilateral pneumonia Current Visit: Yes Status: Acute Assessment & Plan: Continue current treatment, recheck liver enzymes today and tomorrow with ct of abdomen today Code(s): J18.9 - PNEUMONIA, UNSPECIFIED ORGANISM (2) Lab test positive for detection of COVID-19 virus Current Visit: Yes Status: Acute Code(s): U07.1 - COVID-19
[2020-02-27 10:11] LABS: ALBUMIN 3.3 g/dL (3.5-5.0); ALKALINE PHOSPHATASE 133 U/L (38-126); ANION GAP 8.6 MEQ/L (5-15); BLOOD UREA NITROGEN 21 mg/dL (7-17); CHLORIDE 109 mmol/L (98-107); Calcium 8.3 mg/dL (8.4-10.2); Carbon Dioxide 26 mmol/L (22-30); Creatinine 1 0.53 mg/dL (0.52-1.04); Glucose 144 mg/dL (74-106); Potassium 3.7 mmol/L (3.5-5.1); SGOT/AST 42 U/L (14-36); SGPT/ALT 69 U/L (0-35); SODIUM 140 mmol/L (137-145); Total Protein 6.1 g/dL (6.3-8.2)
[2020-02-27] MEDS: ROCEPHIN 1 Gm-D5w 50 ml Bag** 1 G/50 ML IVPB IV SCH (10:18)
[2020-02-27 10:41] LABS: BAND 2 % (0.0-2.0); Lymphocytes 13 % (24-44); Monocyte 1 % (0.0-12.0); Neutrophils 84 % (36.0-66.0); Total Cells Counted 100
[2020-02-27 10:42] LABS: Platelet Estimate NORMAL (NORMAL); Toxic Granulation 1+
[2020-02-27] MEDS: Zithromax 500 MG/ 250 ML NaCl Premix 500 MG/250 ML IVPB IV SCH (10:57)
[2020-02-27] MEDS ORDERED: Sodium Chloride 0.9% 1000 ML 1,000 ML IV SCH (12:59)
[2020-02-27] MEDS: REMDESIVIR 100 MG in Sodium Chloride 0.9% 100 ML IVPB 100 ML IV SCH (13:19)
[2020-02-27] MEDS: Sodium Chloride 0.9% 1000 ML 1,000 ML IV SCH (16:02)
[2020-02-27 20:11] LABS: ALBUMIN 3.3 g/dL (3.5-5.0); ALKALINE PHOSPHATASE 132 U/L (38-126); SGOT/AST 41 U/L (14-36); Total Protein 5.9 g/dL (6.3-8.2)
[2020-02-27 20:40] LABS: SGPT/ALT 71 U/L (0-35)
[2020-02-28] MEDS: ENOXAPARIN SODIUM SQ SCH ×4 (02:26→17:49)
[2020-02-28] MEDS: solu-MEDROL 125 MG IV SCH (05:54)
--- NOTE | 2020-02-28 08:35 | XRAY ---
Indication: Follow-up pneumonia. Comparison: One day earlier. Portable chest demonstrates minimally improving bilateral patchy airspace disease again without consolidation or large effusion. Heart is not enlarged. No new cardiopulmonary abnormalities.
[2020-02-28 09:10] LABS: Hematocrit 40.6 % (35-47); Hemoglobin 13.6 gm/dl (12.0-16.0); Mean Cell Volume 94.6 fl (78-100); Mean Corpuscular Hemoglobin 31.7 pg (26-32); Mean Corpuscular Hgb Concent. 33.5 g/dl (32-36); Platelet Count 202 K/mm3 (150-450); Red Blood Count 4.29 M/mm3 (4.1-5.4); Red Cell Distribution Width 12.2 % (11.5-14.0); White Blood Count 11.6 K/mm3 (4.0-10.5)
[2020-02-28 09:27] LABS: ALBUMIN 3.3 g/dL (3.5-5.0); ALKALINE PHOSPHATASE 122 U/L (38-126); ANION GAP 9.8 MEQ/L (5-15); BLOOD UREA NITROGEN 22 mg/dL (7-17); CHLORIDE 105 mmol/L (98-107); Calcium 8.5 mg/dL (8.4-10.2); Carbon Dioxide 28 mmol/L (22-30); Creatinine 1 0.58 mg/dL (0.52-1.04); Glucose 206 mg/dL (74-106); Potassium 3.4 mmol/L (3.5-5.1); SGOT/AST 34 U/L (14-36); SGPT/ALT 67 U/L (0-35); SODIUM 139 mmol/L (137-145); Total Protein 6.2 g/dL (6.3-8.2)
[2020-02-28] MEDS: Zithromax 500 MG/ 250 ML NaCl Premix 500 MG/250 ML IVPB IV SCH (09:50)
[2020-02-28] MEDS: Protonix 20MG Tablet PO SCH (09:51)
[2020-02-28] MEDS: Levofloxacin 500MG/100ML D5W 500 MG/100 ML BAG IV SCH (11:01)
[2020-02-28] MEDS: REMDESIVIR 100 MG in Sodium Chloride 0.9% 100 ML IVPB 100 ML IV SCH (13:24)
[2020-02-28] MEDS: Sodium Chloride 0.9% 1000 ML 1,000 ML IV SCH (18:17)
[2020-02-29 05:25] LABS: Hematocrit 38.2 % (35-47); Hemoglobin 12.7 gm/dl (12.0-16.0); Mean Corpuscular Hemoglobin 31.6 pg (26-32); Mean Corpuscular Hgb Concent. 33.2 g/dl (32-36); Mean Platelet Volume 10.5 fl (7.5-11.0); Platelet Count 195 K/mm3 (150-450); Red Blood Count 4.02 M/mm3 (4.1-5.4); White Blood Count 11.6 K/mm3 (4.0-10.5)
[2020-02-29] MEDS: ENOXAPARIN SODIUM SQ SCH (05:48)
[2020-02-29] MEDS: TYLENOL 325 MG PO PRN (06:28)
[2020-02-29 08:10] VITALS: O2SAT 95
[2020-02-29] MEDS: Levofloxacin 500MG/100ML D5W 500 MG/100 ML BAG IV SCH (09:18)
[2020-02-29] MEDS: Zithromax 500 MG/ 250 ML NaCl Premix 500 MG/250 ML IVPB IV SCH (09:19)
[2020-02-29] MEDS: Protonix 20MG Tablet PO SCH (09:19)
[2020-02-29 10:06] VITALS: BP 141/64; PULSE 63
[2020-02-29] MEDS: REMDESIVIR 100 MG in Sodium Chloride 0.9% 100 ML IVPB 100 ML IV SCH (10:40)
== END 2020-02-29 12:35 | disposition home or self-care (01) | DRG 193 ==
LOC: ED 14:05 → MED SURG 19:00
PROVIDERS: ADMIT Family Medicine; ATTEND Family Medicine
DX: J18.9 Pneumonia, unspecified organism (principal); U07.1 COVID-19; M54.9 Dorsalgia, unspecified; R00.1 Bradycardia, unspecified; R09.02 Hypoxemia; R10.11 Right upper quadrant pain; Z79.899 Other long term (current) drug therapy
CPT/HCPCS: 36415; 71045; 71260; 74176; 80053; 81001; 82150; 82962; 83036; 83605; 83690; 84484; 85025; 85027; 85379; 87040; 93005; 94762; 96365; 96372; 96374; 96375; 99291; U0003; 36000; 99285; J0456; J0696; J1170; J1650; J1815; J1956; J2060; J2270; J2405; J2550; J2930; A9270-GY

== ENCOUNTER 2023-08-31 13:07 | Day surgery (SDC) | payer MEDICARE, OTHER ==
[2023-08-31] MEDS ORDERED: Sodium Chloride 0.9(Preservative Free) 10 ML IJ ONE (13:08)
[2023-08-31] MEDS ORDERED: XYLOCAINE-MPF 1% 5ML SDV IJ ONE (13:08)
[2023-08-31] MEDS ORDERED: Depo-Medrol 40 MG/ML IM ONE (13:08)
[2023-08-31] MEDS ORDERED: DIPRIVAN 200 MG/20 ML IV ONE (15:38)
[2023-08-31] MEDS ORDERED: Lactated Ringers 1,000 ML IV ONE (16:33)
--- NOTE | 2023-08-31 16:53 | XRAY ---
24 seconds of fluoroscopy was used in surgery for a lumbar REBECCA.
--- NOTE | 2023-08-31 16:59 | XRAY ---
Indication: Lumbar REBECCA. Intraoperative fluoroscopy provided for 24 seconds. Single lateral digital spot image submitted for interpretation demonstrates needle tip projecting posterior to lumbosacral junction interspace. Small amount of contrast injected for needle tip placement. Correlate with intraoperative findings/report.
== END 2023-08-31 16:15 | disposition home or self-care (01) ==
LOC: SDC-PAIN 13:07
PROVIDERS: ATTEND Psychiatry & Neurology Pain Medicine
DX: M54.16 Radiculopathy, lumbar region (principal)
CPT/HCPCS: 62323; 72100; 77003; J1030; J2704; Q9966

== ENCOUNTER 2023-09-28 12:37 | Day surgery (SDC) | payer MEDICARE, OTHER ==
[2023-09-28] MEDS ORDERED: XYLOCAINE-MPF 1% 5ML SDV IJ ONE (12:38)
[2023-09-28] MEDS ORDERED: Depo-Medrol 40 MG/ML IM ONE (12:38)
[2023-09-28] MEDS ORDERED: BUPIVACAINE 0.5% VIAL IJ ONE (12:38)
[2023-09-28] MEDS ORDERED: Lactated Ringers 1,000 ML IV ONE (14:25)
--- NOTE | 2023-09-28 17:37 | XRAY ---
Indication: Left knee injection. Intraoperative fluoroscopy provided for 7 seconds. Single digital spot images submitted for interpretation demonstrates needle tip projecting over the left femur intercondylar notch. Small amount of contrast injected for needle tip placement. Correlate with intraoperative findings/report.
--- NOTE | 2023-09-28 17:37 | XRAY ---
Indication: Right knee injection. Intraoperative fluoroscopy provided for 9 seconds. Single digital spot images submitted for interpretation demonstrates needle tip projecting over the right femur intercondylar notch. Small amount of contrast injected for needle tip placement. Correlate with intraoperative findings/report.
--- NOTE | 2023-09-29 10:56 | XRAY ---
9 seconds of fluoroscopy was used in surgery for a right intra-articular knee injection.
--- NOTE | 2023-09-29 10:56 | XRAY ---
7 seconds of fluoroscopy was used in surgery for a left intra-articular knee injection.
== END 2023-09-28 15:20 | disposition home or self-care (01) ==
LOC: SDC-PAIN 12:37
PROVIDERS: ATTEND Psychiatry & Neurology Pain Medicine
DX: M17.0 Bilateral primary osteoarthritis of knee (principal)
CPT/HCPCS: 20610; 73560; 77002; J1030; Q9966

== ENCOUNTER 2023-11-02 14:06 | Day surgery (SDC) | payer MEDICARE, OTHER ==
[2023-11-02] MEDS ORDERED: Depo-Medrol 40 MG/ML IM ONE (14:07)
[2023-11-02] MEDS ORDERED: Sodium Chloride 0.9(Preservative Free) 10 ML IJ ONE (14:07)
[2023-11-02] MEDS ORDERED: Pepcid 20 MG VIAL IV ONE (15:00)
[2023-11-02] MEDS ORDERED: Reglan 10 MG/2 ML ONE (15:00)
[2023-11-02] MEDS ORDERED: Lactated Ringers 1,000 ML IV ONE (15:13)
[2023-11-02] MEDS ORDERED: DIPRIVAN 200 MG/20 ML IV ONE (15:34)
--- NOTE | 2023-11-02 16:59 | XRAY ---
Indication: Caudal REBECCA. Intraoperative fluoroscopy provided for 9 seconds. 2 digital spot image submitted for interpretation demonstrates caudal needle tip projecting mid sacrum. Small amount of contrast injected for needle tip placement. Correlate with intraoperative findings/report.
--- NOTE | 2023-11-02 17:19 | XRAY ---
9 seconds of fluoroscopy was used in surgery for a caudal REBECCA.
== END 2023-11-02 16:15 | disposition home or self-care (01) ==
LOC: SDC-PAIN 14:06
PROVIDERS: ATTEND Psychiatry & Neurology Pain Medicine
DX: M54.16 Radiculopathy, lumbar region (principal)
CPT/HCPCS: 62323; 72220; 77003; J1030; J2704; Q9966

== ENCOUNTER 2024-01-04 14:09 | Day surgery (SDC) | payer MEDICARE, OTHER ==
[2024-01-04] MEDS ORDERED: Depo-Medrol 40 MG/ML IM ONE (14:10)
[2024-01-04] MEDS ORDERED: BUPIVACAINE 0.5% VIAL IJ ONE (14:10)
[2024-01-04] MEDS ORDERED: Decadron 4 MG INJ IV ONE (14:10)
[2024-01-04] MEDS ORDERED: XYLOCAINE-MPF 1% 5ML SDV IJ ONE (14:10)
[2024-01-04] MEDS ORDERED: Pepcid 20 MG VIAL IV ONE (14:44)
[2024-01-04] MEDS ORDERED: Reglan 10 MG/2 ML ONE (14:44)
[2024-01-04] MEDS ORDERED: Lactated Ringers 1,000 ML IV ONE (15:50)
[2024-01-04] MEDS ORDERED: DIPRIVAN 200 MG/20 ML IV ONE (15:56)
--- NOTE | 2024-01-04 17:18 | XRAY ---
Indication: Bilateral SI joint and piriformis injection RFA. Intraoperative fluoroscopy provided for 40 seconds. 6 digital spot images submitted for interpretation demonstrates posterior needle tips projecting over the expected left/right piriformis and left/right SI joints. Small amount of contrast injected for all needle tip placement. Correlate with intraoperative findings/report.
--- NOTE | 2024-01-04 17:20 | XRAY ---
40 seconds of fluoroscopy was used in surgery for a bilateral sacroiliac joint and bilateral piriformis injection.
== END 2024-01-04 16:28 | disposition home or self-care (01) ==
LOC: SDC-PAIN 14:09
PROVIDERS: ATTEND Psychiatry & Neurology Pain Medicine
DX: M46.1 Sacroiliitis, not elsewhere classified (principal); M79.18 Myalgia, other site
CPT/HCPCS: 01992; 20552; 27096; 72202; 77002; G0260; J1010; J1100; J2704; Q9966

== ENCOUNTER 2024-05-23 06:39 | Day surgery (SDC) | payer MEDICARE, OTHER ==
[2024-05-23 07:02] VITALS: RESP 16
[2024-05-23] MEDS ORDERED: Lactated Ringers 1,000 ML IV ONE (07:09)
[2024-05-23] MEDS: Lactated Ringers 1,000 ML IV SCH (07:27)
[2024-05-23] MEDS ORDERED: Transderm Scop 1.5MG Patch ONE (07:42)
[2024-05-23] MEDS: Transderm Scop 1.5MG Patch TOP ONE (07:45)
[2024-05-23] MEDS ORDERED: Versed 2 MG/2 ML Injection ONE (08:05)
[2024-05-23] MEDS ORDERED: DIPRIVAN 200 MG/20 ML IV ONE ×2 (08:06→08:29)
[2024-05-23] MEDS ORDERED: Xylocaine-Mpf 2% 5 Ml Vial ONE (08:06)
[2024-05-23 08:59] VITALS: TEMP 97.6
[2024-05-23 09:14] VITALS: BP 129/93; PULSE 70; O2SAT 98
--- NOTE | 2024-05-24 10:54 | OP ---
SURGERY DATE/TIME: 05/23/2024 [id number] PREOPERATIVE DIAGNOSIS: Positive Cologuard. POSTOPERATIVE DIAGNOSIS: Polypoid cecal mass. PROCEDURE PERFORMED: Colonoscopy. SURGEON: Jarvis Smith MD ANESTHESIA: MAC by Jose Jara CRNA. ESTIMATED BLOOD LOSS: Minimal. SPECIMENS: Cold forceps biopsies from cecal mass. DESCRIPTION OF PROCEDURE AND FINDINGS: After informed written consent was obtained, the patient was taken to the endoscopy suite. She had anesthesia titrated to the desired level of consciousness, then a digital rectal exam showed normal sphincter tone and no internal lesions. The scope was inserted into the rectum, and sequentially the entire colonic mucosa was traversed. The level of the cecum was reached and verified with direct visualization of the ileocecal valve. In the pericecal area, there was a large polypoid mass with a broad base encompassing approximately 40% of the colon lumen at the base. It was felt to be too large to snare, therefore, multiple cold forceps biopsies were taken from this region. Retroflexion was performed in the cecum to be able to visualize and multiple pictures were taken. There was minimal blood loss following those cold forceps; being sent for pathology. Due to its obvious location in the cecum, I did not feel the need to ernestina it since it was just several centimeters away from the ileocecal valve. The remainder of the exam showed scattered diverticula but no other polyps or masses. Prior to withdrawal, retroflexion was performed and showed no internal lesions. Scope was removed. The patient was transferred to the recovery room in good condition. I showed pictures of the lesion to her family. Recommend a general surgery consult for possible resection pending pathology report at this time. She has been advised to continue to hold aspirin due to biopsy site.
== END 2024-05-23 09:30 | disposition home or self-care (01) ==
LOC: SDC 06:39
PROVIDERS: ATTEND Family Medicine
DX: C18.0 Malignant neoplasm of cecum (principal); D12.0 Benign neoplasm of cecum; R19.5 Other fecal abnormalities
CPT/HCPCS: J2250; J2704; A9270-GY

== ENCOUNTER 2024-09-27 21:21 | Emergency (ER) | payer MEDICARE, OTHER ==
--- NOTE | 2024-09-27 21:38 | ERPHSYRPT ---
- History of Present Illness Time Seen by Provider: 09/27/24 21:38 Historian: patient, family, old records Exam Limitations: no limitations Physician History: This is a 68-year-old white female patient who was diagnosed with colon cancer and has received 2 rounds of chemotherapy. She does not recall the name of the chemotherapy medications. She is a patient of Dr. Sanders and was brought to the emergency department by the patient's spouse. Approximately 1 week ago patient was having cough and was clinically diagnosed with pneumonia and was given 5 days of an antibiotic. She does not recall the name of this antibiotic. She does state that after receiving chemotherapy both times, within 24 hours she was having significant chest pain. Patient has never been diagnosed with coronary artery disease. Patient does have a low heart score. She does have a history of hyperlipidemia. She describes the pain as nonradiating, anterior chest tightness. She is not short of breath Timing/Duration: today Activities at Onset: none Quality: tightness Location: other (Neurolysed) Chest Pain Radiation: no radiation Severity of Pain-Max: moderate Severity of Pain-Current: moderate Modifying Factors: Improves With: nothing Associated Symptoms: denies symptoms Prior Chest Pain/Cardiac Workup: no prior cardiac workup Nitro Today/Relief: no nitro taken today Aspirin Treatment Today: 81 mg x 4, provided by ED Allergies/Adverse Reactions: No Known Drug Allergies Allergy (Unverified 09/27/24 21:27) Home Medications: Nystatin [Klayesta] 15 gm TP UD 05/16/24 [History] Lovastatin 10 mg PO DAILY 05/23/24 [History] Hx Influenza Vaccination/Date Given: No Hx Pneumococcal Vaccination/Date Given: No Travel Risk - International Travel Have you traveled outside of the country in past 3 weeks: No - Emerging Infectious Disease Are you exhibiting symptoms associated with any current EIDs: No - Review of Systems Constitutional: No Symptoms Eyes: No Symptoms Ears, Nose, & Throat: No Symptoms Respiratory: No Symptoms Cardiac: Chest Pain (Describes as generalized tightness) Abdominal/Gastrointestinal: No Symptoms Genitourinary Symptoms: No Symptoms Musculoskeletal: No Symptoms Skin: No Symptoms Neurological: No Symptoms Psychological: No Symptoms Endocrine: No Symptoms Hematologic/Lymphatic: No Symptoms Immunological/Allergic: No Symptoms All Other Systems: Reviewed and Negative - Past Medical History Pertinent Past Medical History: Yes Neurological History: No Pertinent History ENT History: No Pertinent History Cardiac History: High Cholesterol Respiratory History: No Pertinent History Endocrine Medical History: No Pertinent History Musculoskeletal History: No Pertinent History GI Medical History: Gallbladder Disease History: No Pertinent History Psycho-Social History: No Pertinent History Female Reproductive Disorders: No Pertinent History - Past Surgical History Past Surgical History: Yes Neuro Surgical History: No Pertinent History Cardiac: No Pertinent History Respiratory: No Pertinent History Gastrointestinal: Cholecystectomy Genitourinary: No Pertinent History Musculoskeletal: Orthopedic Surgery Female Surgical History: No Pertinent History Other Surgical History: foot surgery, hands, elbows. - Social History Smoking Status: Never smoker Exposure to second hand smoke: No Drug Use: none - Nursing Vital Signs Nursing Vital Signs: Initial Vital Signs Temperature 96.3 F 09/27/24 21:28 Pulse Rate 77 09/27/24 21:28 Respiratory Rate 24 09/27/24 21:28 Blood Pressure 173/88 09/27/24 21:28 O2 Sat by Pulse Oximetry 96 09/27/24 21:28 Pain Scale Pain Intensity 0 - Physical Exam General Appearance: no apparent distress, alert, anxiety Eye Exam: eyes nml inspection Ears, Nose, Throat Exam: normal ENT inspection, moist mucous membranes Neck Exam: normal inspection, non-tender, supple, full range of motion Respiratory Exam: normal breath sounds, chest tenderness (Scribed as generalized tightness), lungs clear, airway intact, No respiratory distress Cardiovascular Exam: regular rate/rhythm, normal heart sounds, normal peripheral pulses Gastrointestinal/Abdomen Exam: soft, normal bowel sounds, No tenderness Pelvic Exam: not done Rectal Exam: not done Back Exam: normal inspection, normal range of motion, No CVA tenderness, No vertebral tenderness Extremity Exam: normal inspection, normal range of motion, pelvis stable Neurologic Exam: alert, oriented x 3, cooperative, non profit financial controller II-XII nml as tested, nml cerebellar function, nml station & gait, sensation nml Skin Exam: normal color, warm, dry Lymphatic Exam: No adenopathy SpO2 Interpretation: normal O2 Delivery: Room Air - Course Nursing assessment & vital signs reviewed: Yes EKG Interpreted by Me: RATE (78), Sinus Rhythm, NORMAL AXIS, NORMAL INTERVALS, NORMAL QRS, NORMAL ST-T, Other (Acute ischemia. QTc 425) Ordered Tests: Active Orders 24 hr Category Date Time Status Ranger Aide STAT Care 09/27/24 21:39 Active EKG-ER Only STAT Care 09/27/24 21:39 Active IV Insertion STAT Care 09/27/24 21:39 Active Pulse Oximetry (ED) STAT Care 09/27/24 21:39 Active CHEST 1 VIEW (PORTABLE) Stat Exams 09/27/24 22:26 Taken CBC W DIFF Stat Lab 09/27/24 21:48 Completed CMP Stat Lab 09/27/24 21:48 Completed MAG [MAGNESIUM] Stat Lab 09/27/24 21:48 Completed NT PRO BNPII Stat Lab 09/27/24 21:48 Completed TROPONIN Q4H Lab 09/27/24 21:48 Completed TROPONIN Q4H Lab 09/28/24 01:45 Ordered TROPONIN Q4H Lab 09/28/24 05:45 Ordered Medication Summary Discontinued Medications Generic Name Dose Route Start Last Admin Trade Name Carrilloq PRN Reason Stop Dose Admin Aspirin 324 mg 09/27/24 21:39 09/27/24 21:43 Aspirin 81 Mg Tab.Chew PO 09/27/24 21:40 324 mg STAT ONE Administration Aspirin Confirm 09/27/24 21:42 Aspirin 81 Mg Tab.Chew Administered 09/27/24 21:43 Dose 324 mg .ROUTE .STK-MED ONE Morphine Sulfate 4 mg 09/27/24 22:42 09/27/24 22:48 Morphine Sulfate 4 Mg/Ml Injection IV 09/27/24 22:43 4 mg STAT ONE Administration Morphine Sulfate Confirm 09/27/24 22:45 Morphine Sulfate 4 Mg/Ml Injection Administered 09/27/24 22:46 Dose 4 mg .ROUTE .STK-MED ONE Ondansetron HCl 4 mg 09/27/24 22:42 09/27/24 22:47 Ondansetron Hcl 4 Mg/2 Ml Vial IV 09/27/24 22:43 4 mg STAT ONE Administration Ondansetron HCl Confirm 09/27/24 22:44 Ondansetron Hcl 4 Mg/2 Ml Vial Administered 09/27/24 22:45 Dose 4 mg .ROUTE .STK-MED ONE Lab/Rad Data: Laboratory Result Diagrams 09/27/24 21:48 09/27/24 21:48 Laboratory Results 09/27/24 09/27/24 09/27/24 Range/Units 21:48 21:48 21:48 WBC 6.4 (3.98-10.04) x10^3/uL RBC 4.26 (3.93-5.22) x10^6/uL Hgb 13.7 (11.2-15.7) g/dL Hct 40.6 (34.1-44.9) % MCV 95.3 H (79.4-94.8) fL MCH 32.2 (25.6-32.2) pg MCHC 33.7 (32.2-35.5) g/dL RDW 14.6 H (11.7-14.4) % Plt Count 232 (182-369) x10^3/uL MPV 9.3 L (9.4-12.3) fL Gran % 52.7 (34.0-71.1) % Immature Gran % (Auto) 0.2 (0.001-0.429) % Nucleat RBC Rel Count 0.0 (0.00-0.2) % Eos # (Auto) 0.41 H (0.04-0.36) x10^3/uL Immature Gran # (Auto) 0.01 (0.001-0.031) x10^3u/L Absolute Lymphs (auto) 2.18 (1.18-3.74) x10^3/uL Absolute Monos (auto) 0.38 (0.24-0.86) x10^3/uL Absolute Nucleated RBC 0.00 (0.00-0.012) x10^3u/L Lymphocytes % 34.2 (19.3-51.7) % Monocytes % 6.0 (4.7-12.5) % Eosinophils % 6.4 H (0.7-5.8) % Basophils % 0.5 (0.1-1.2) % Absolute Granulocytes 3.36 (1.56-6.13) x10^3/uL Basophils # 0.03 (0.01-0.08) x10^3/uL Sodium 136 (135-145) mmol/L Potassium 4.6 (3.5-5.1) mmol/L Chloride 100 (98-107) mmol/L Carbon Dioxide 29 (22-30) mmol/L Anion Gap 10.7 (5-15) MEQ/L BUN 25 H (7-17) mg/dL Creatinine 0.78 (0.52-1.04) mg/dL Estimated GFR 82.2 ML/MIN Glucose 102 (74-106) mg/dL Calcium 9.2 (8.4-10.2) mg/dL Magnesium 2.1 (1.6-2.3) mg/dL Total Bilirubin 0.50 (0.2-1.3) mg/dL AST 47 H (14-36) U/L ALT 49 H (0-35) U/L Alkaline Phosphatase 103 (38-126) U/L Troponin I < 0.012 (0.000-0.033) ng/mL NT-Pro-B Natriuret Pep 108 (<300) pg/mL Serum Total Protein 7.4 (6.3-8.2) g/dL Albumin 4.6 (3.5-5.0) g/dL - Progress Progress: improved, re-examined Air Movement: good Progress Note: 09/27/24 23:07 My medical decision making and the assignment of moderate complexity to this patient's medical issue today is based on review of the patient's past medical history, review of patient's medication list, reviewed patient drug allergy list, history present illness and physical findings on examination. The workup in this patient includes placement of intravenous line, chest x-ray, twelve-lead EKG, CBC, CMP, magnesium level, troponin level. Differential diagnosis includes but is not limited to medication side effect, pneumonia, electrolyte abnormalities, myocardial infarction, arrhythmia 09/27/24 23:13 I interpreted the patient's laboratory data results. Based on the laboratory data results, the patient has no acute, emergent medical issue. I interpreted the patient's preliminary chest x-ray report. I do not appreciate an obvious infiltrate. When compared to similar study dated February 2020 there is definitely improvement of bilateral/diffuse airspace disease. I spoke with the patient and her . We will wait on the final read by the radiologist to determine if the patient needs to be placed on another antibiotic. She just completed 5 days recently. Clinically, patient states she has no chest pain and wants to go home. Blood Culture(s) Obtained: No Antibiotics given: No Counseled pt/family regarding: lab results, diagnosis, need for follow-up, rad results Medical Desision Making - Independent Historian Additional History obtained from: Spouse - Diagnostic Testing Diagnostic test were ordered, analyzed, and reviewed by me: Yes Radiological Interpretation: Interpreted by me, Teleradiologist Report - Risk of complications Low Risk: Low risk of morbidity from additional dx testing or treatment - Departure Departure Disposition: Home Clinical Impression: Nonspecific chest pain Condition: Stable Critical Care Time: No Referrals: LESIA SANDERS DO [Primary Care Provider] - Follow up/PCP as directed Instructions: Chest pain Additional Instructions: Call your primary care provider tomorrow, 09/28/2024, to make arrangements for follow-up appointment to be seen in the next 2 to 3 days. In addition, asked them to follow-up on the chest x-ray that was performed this evening in the emergency department. Asked them to find out the final reading to determine if you do or do not have to be on additional/new antibiotics. Call your oncologist tomorrow, 09/28/2024, and let them know the symptoms that you have had after both rounds of chemotherapy. See if they want to change anything or provide you with a regimen to prevent or lessen the nonspecific chest pain that you are having after the chemotherapy.
[2024-09-27 21:40] VITALS: TEMP 96.3
[2024-09-27] MEDS ORDERED: BABY ASPIRIN 81 MG CHEW ONE (21:42)
[2024-09-27] MEDS: BABY ASPIRIN 81 MG CHEW PO ONE (21:43)
[2024-09-27 21:55] LABS: Absolute Neutrophil Ct (ANC) 3.36 x10^3/uL (1.56-6.13); BASOPHIL % 0.5 % (0.1-1.2); Basophil (Absolute #) 0.03 x10^3/uL (0.01-0.08); Eosinophil % 6.4 % (0.7-5.8); Eosinophil (Absolute #) 0.41 x10^3/uL (0.04-0.36); Hematocrit 40.6 % (34.1-44.9); Hemoglobin 13.7 g/dL (11.2-15.7); IMMATURE GRAN # 0.01 x10^3u/L (0.001-0.031); IMMATURE GRAN % 0.2 % (0.001-0.429); Lymphocyte (Absolute #) 2.18 x10^3/uL (1.18-3.74); Lymphocytes % 34.2 % (19.3-51.7); Mean Cell Volume 95.3 fL (79.4-94.8); Mean Corpuscular Hemoglobin 32.2 pg (25.6-32.2); Mean Corpuscular Hgb Concent. 33.7 g/dL (32.2-35.5); Mean Platelet Volume 9.3 fL (9.4-12.3); Monocyte (Absolute #) 0.38 x10^3/uL (0.24-0.86); Neutrophil % 52.7 % (34.0-71.1); Platelet Count 232 x10^3/uL (182-369); Red Blood Count 4.26 x10^6/uL (3.93-5.22); Red Cell Distribution Width 14.6 % (11.7-14.4); White Blood Count 6.4 x10^3/uL (3.98-10.04)
[2024-09-27 22:08] LABS: ALBUMIN 4.6 g/dL (3.5-5.0); ANION GAP 10.7 MEQ/L (5-15); BILIRUBIN,TOTAL 0.5 mg/dL (0.2-1.3); Calcium 9.2 mg/dL (8.4-10.2); Creatinine 1 0.78 mg/dL (0.52-1.04); EST GLOMERULAR FILTRATION RATE 82.2 ML/MIN; MAGNESIUM 2.1 mg/dL (1.6-2.3); Potassium 4.6 mmol/L (3.5-5.1); Total Protein 7.4 g/dL (6.3-8.2)
[2024-09-27 22:19] LABS: NT PRO BNPII 108 pg/mL (<300); TROPONIN < 0.012 ng/mL (0.000-0.033)
[2024-09-27 22:31] VITALS: O2SAT 95
[2024-09-27] MEDS ORDERED: Zofran 4 MG/2 ML VIAL ONE (22:44)
[2024-09-27] MEDS ORDERED: MORPHINE SULFATE 4 MG INJ ONE (22:45)
[2024-09-27] MEDS: Zofran 4 MG/2 ML VIAL IV ONE (22:47)
[2024-09-27] MEDS: MORPHINE SULFATE 4 MG INJ IV ONE (22:48)
[2024-09-27 23:03] VITALS: BP 134/63; PULSE 69; RESP 19
--- NOTE | 2024-09-28 09:21 | XRAY ---
Indication: Chest pain. Comparison: February 28, 2020 Portable chest is now underinflated with new right midlung subsegmental atelectasis/scarring and new left base infiltrate versus atelectasis. Again incidental tiny calcified granulomas. Heart not large with new left Port-A-Cath. Bony thorax intact.
== END 2024-09-27 23:28 | disposition home or self-care (01) ==
LOC: ED 21:21
DX: R07.9 Chest pain, unspecified (principal); E78.5 Hyperlipidemia, unspecified; Z79.899 Other long term (current) drug therapy
CPT/HCPCS: 36415; 71045; 80053; 83735; 83880; 84484; 85025; 93005; 93041; 94760; 96374; 96375; 99284; 99285; J2270; J2405; A9270-GY

== ENCOUNTER 2024-11-06 13:22 | Observation (INO) | payer MEDICARE, OTHER ==
[2024-11-06 13:46] LABS: Hematocrit 38.6 % (34.1-44.9); Hemoglobin 13.6 g/dL (11.2-15.7); Mean Cell Volume 96.5 fL (79.4-94.8); Mean Corpuscular Hgb Concent. 35.2 g/dL (32.2-35.5); Red Cell Distribution Width 14.2 % (11.7-14.4); White Blood Count 4.2 x10^3/uL (3.98-10.04)
[2024-11-06 13:47] LABS: Absolute Neutrophil Ct (ANC) 1.81 x10^3/uL (1.56-6.13); BASOPHIL % 0.7 % (0.1-1.2); Basophil (Absolute #) 0.03 x10^3/uL (0.01-0.08); Eosinophil % 4.5 % (0.7-5.8); Eosinophil (Absolute #) 0.19 x10^3/uL (0.04-0.36); IMMATURE GRAN # 0.02 x10^3u/L (0.001-0.031); IMMATURE GRAN % 0.5 % (0.001-0.429); Lymphocyte (Absolute #) 1.85 x10^3/uL (1.18-3.74); Monocytes % 7.1 % (4.7-12.5); Neutrophil % 43.2 % (34.0-71.1); Platelet Count 346 x10^3/uL (182-369)
[2024-11-06] MEDS ORDERED: Zofran 4 MG/2 ML VIAL ONE (13:58)
[2024-11-06] MEDS ORDERED: MORPHINE SULFATE 2 MG INJ ONE (13:58)
[2024-11-06] MEDS: Zofran 4 MG/2 ML VIAL IV ONE (14:01)
[2024-11-06] MEDS: MORPHINE SULFATE 2 MG INJ IV ONE (14:01)
[2024-11-06 14:04] LABS: ALBUMIN 4.7 g/dL (3.5-5.0); ANION GAP 16.8 MEQ/L (5-15); BILIRUBIN,TOTAL 0.5 mg/dL (0.2-1.3); Calcium 9.8 mg/dL (8.4-10.2); Creatinine 1 0.79 mg/dL (0.52-1.04); EST GLOMERULAR FILTRATION RATE 80.9 ML/MIN; Potassium 3.9 mmol/L (3.5-5.1); Total Protein 7.6 g/dL (6.3-8.2)
--- NOTE | 2024-11-06 14:33 | ERPHSYRPT ---
- History of Present Illness Time Seen by Provider: 11/06/24 13:50 Source: patient Exam Limitations: no limitations Patient Subjective Stated Complaint: "I've been having pain in the since my last chemo treatment on Tuesday. I've received chemo treatments for my colon cancer and after each chemo treatment I've been getting chest pains. It's in the center of my chest and radiates to right shoulder/right neck". Triage Nursing Assessment: Pt presents to ER with complaints of mid sternal chest pains since last chemo treatments which occurred on tuesday10/31/24. Pt states pain is intermittent sharp and stabbing. She states her port does not draw and hurts every time it's accessed. Pt has red area to mid chest. States pain radiates into back and into right neck/shoulder. Pt is alert and oriented x 3. Skin is pink, warm, and dry. Respirations are slightly labored. Complains of shortness of breath. Lung sounds clear and equal throughout. Appears anxious and in pain. States been taking her [place] every 3 hours to help cope with this pain. Physician History: Patient is a 68-year-old female currently on chemotherapy for colon cancer presents to our ED for evaluation of midsternal chest pain. Patient states that pain occurs after her chemotherapy treatments. Patient's last chemotherapy treatment was Tuesday, 6 days ago. Patient describes the pain as a sharp stabbing sensation. Patient believes it is associated with the chemotherapy treatments. Pain tends to radiate to her back neck and shoulders. Pain associated with mild shortness of breath. Shortness of breath worse with deep inspiration. Patient currently on [place] pill for pain control. No associated nausea vomiting no diaphoresis. Patient voices no other complaints or concerns at this time. Portions of this note were created with voice recognition technology. There may be grammatical, spelling, punctuation or sound alike errors Timing/Duration: today Severity: moderate Modifying Factors: Improves With: nothing Associated Symptoms: denies symptoms Allergies/Adverse Reactions: No Known Drug Allergies Allergy (Verified 11/06/24 13:37) Home Medications: Hydrocodone/Acetaminophen [Hydrocodone-Acetamin 5-325 mg] 1 tab PO Q6HPRN PRN MDD 4 11/06/24 [History] Ondansetron ODT 4 MG [Zofran Odt 4 mg] 8 mg PO Q6HPRN PRN 11/06/24 [History] Prochlorperazine Maleate 5 mg* [Compazine 5 MG] 10 mg PO Q12H PRN 11/06/24 [History] Hx Tetanus, Diphtheria Vaccination/Date Given: No Hx Influenza Vaccination/Date Given: No Hx Pneumococcal Vaccination/Date Given: No Immunizations Up to Date: No Travel Risk - International Travel Have you traveled outside of the country in past 3 weeks: No - Emerging Infectious Disease Are you exhibiting symptoms associated with any current EIDs: No - Review of Systems Constitutional: No Symptoms, No Fever, No Chills Eyes: No Symptoms Ears, Nose, & Throat: No Symptoms Respiratory: No Symptoms, No Cough, No Dyspnea Cardiac: No Symptoms, No Chest Pain, No Edema, No Syncope Abdominal/Gastrointestinal: No Symptoms, No Abdominal Pain, No Nausea, No Vomiting, No Diarrhea Genitourinary Symptoms: No Symptoms, No Dysuria Musculoskeletal: No Symptoms, No Back Pain, No Neck Pain Skin: No Symptoms, No Rash Neurological: No Symptoms, No Dizziness, No Focal Weakness, No Sensory Changes Psychological: No Symptoms Endocrine: No Symptoms Hematologic/Lymphatic: No Symptoms Immunological/Allergic: No Symptoms All Other Systems: Reviewed and Negative - Past Medical History Pertinent Past Medical History: Yes Neurological History: No Pertinent History ENT History: No Pertinent History Cardiac History: High Cholesterol Respiratory History: No Pertinent History Endocrine Medical History: No Pertinent History Musculoskeletal History: No Pertinent History GI Medical History: Gallbladder Disease History: No Pertinent History Psycho-Social History: No Pertinent History Female Reproductive Disorders: No Pertinent History Other Medical History: colon cancer - Past Surgical History Past Surgical History: Yes Neuro Surgical History: No Pertinent History Cardiac: No Pertinent History Respiratory: No Pertinent History Gastrointestinal: Cholecystectomy, Colon Resection Genitourinary: No Pertinent History Musculoskeletal: Orthopedic Surgery Female Surgical History: No Pertinent History Other Surgical History: foot surgery, hands, elbows. - Social History Smoking Status: Never smoker Exposure to second hand smoke: No Drug Use: none - Social Determinants of Health Will the patient participate in the screening: Yes Do you worry about a steady place to live?: No Do you have any problems with any of the following?: No known problems In the past 12 months,have you had to go without utilities?: No Transportation Issues: No Has anyone in your support network made you feel unsafe?: No Have you or anyone in your house had to go w/o enough food: No - Nursing Vital Signs Nursing Vital Signs: Initial Vital Signs Temperature 97.8 F 11/06/24 13:26 Pulse Rate 86 11/06/24 13:26 Respiratory Rate 18 11/06/24 13:26 Blood Pressure 166/87 11/06/24 13:26 O2 Sat by Pulse Oximetry 98 11/06/24 13:26 Pain Scale Pain Intensity 8 - Physical Exam General Appearance: no apparent distress, alert Eye Exam: PERRL/EOMI, eyes nml inspection Ears, Nose, Throat Exam: normal ENT inspection, pharynx normal, moist mucous membranes Neck Exam: normal inspection, non-tender, supple, full range of motion Respiratory Exam: normal breath sounds, lungs clear, airway intact, No respiratory distress Cardiovascular Exam: regular rate/rhythm, normal heart sounds, normal peripheral pulses Gastrointestinal/Abdomen Exam: soft, normal bowel sounds, No tenderness, No mass Back Exam: normal inspection, normal range of motion, No CVA tenderness, No vertebral tenderness Extremity Exam: normal inspection, normal range of motion, pelvis stable Neurologic Exam: alert, oriented x 3, cooperative, normal mood/affect, sensation nml, No motor deficits Skin Exam: normal color, warm, dry, No rash Lymphatic Exam: No adenopathy SpO2 Interpretation: normal SpO2: 95 O2 Delivery: Room Air - Course Nursing assessment & vital signs reviewed: Yes EKG Interpreted by Me: RATE (85), Sinus Rhythm, NORMAL AXIS, NORMAL INTERVALS, NORMAL QRS - CT Exams Chest CT Interpretation: Tele-radiologist Report (No PE. Cardiomegaly) Ordered Tests: Active Orders 24 hr Category Date Time Status CHEST WITH CONTRAST [CT] Stat Exams 11/06/24 14:15 Completed CBC W DIFF Stat Lab 11/06/24 13:46 Completed CMP Stat Lab 11/06/24 13:46 Completed D-DIMER QUANTITATIVE Stat Lab 11/06/24 13:46 Completed TROPONIN Q4H Lab 11/06/24 13:46 Completed TROPONIN Q4H Lab 11/06/24 17:45 Ordered TROPONIN Q4H Lab 11/06/24 21:45 Ordered Transfer Order Routine Transfer 11/06/24 Ordered Medication Summary Discontinued Medications Generic Name Dose Route Start Last Admin Trade Name Freq PRN Reason Stop Dose Admin Hydrocodone Bitart/Acetaminophen 1 tab 11/06/24 16:55 11/06/24 17:13 Hydrocodone/Apap 5/325 1 Tab Tablet PO 11/06/24 16:56 1 tab STAT ONE Administration Hydrocodone Bitart/Acetaminophen Confirm 11/06/24 17:12 Hydrocodone/Apap 5/325 1 Tab Tablet Administered 11/06/24 17:13 Dose 1 tab .ROUTE .STK-MED ONE Morphine Sulfate 2 mg 11/06/24 13:55 11/06/24 14:01 Morphine Sulfate 2 Mg/Ml Inj IV 11/06/24 13:56 2 mg STAT ONE Administration Morphine Sulfate Confirm 11/06/24 13:58 Morphine Sulfate 2 Mg/Ml Inj Administered 11/06/24 13:59 Dose 2 mg .ROUTE .STK-MED ONE Ondansetron HCl 4 mg 11/06/24 13:55 11/06/24 14:01 Ondansetron Hcl 4 Mg/2 Ml Vial IV 11/06/24 13:56 4 mg STAT ONE Administration Ondansetron HCl Confirm 11/06/24 13:58 Ondansetron Hcl 4 Mg/2 Ml Vial Administered 11/06/24 13:59 Dose 4 mg .ROUTE .STK-MED ONE Lab/Rad Data: Laboratory Result Diagrams 11/06/24 13:46 11/06/24 13:46 Laboratory Results 11/06/24 11/06/24 11/06/24 Range/Units 13:46 13:46 13:46 WBC (3.98-10.04) x10^3/uL RBC (3.93-5.22) x10^6/uL Hgb (11.2-15.7) g/dL Hct (34.1-44.9) % MCV (79.4-94.8) fL MCH (25.6-32.2) pg MCHC (32.2-35.5) g/dL RDW (11.7-14.4) % Plt Count (182-369) x10^3/uL MPV (9.4-12.3) fL Gran % (34.0-71.1) % Immature Gran % (Auto) (0.001-0.429) % Nucleat RBC Rel Count (0.00-0.2) % Eos # (Auto) (0.04-0.36) x10^3/uL Immature Gran # (Auto) (0.001-0.031) x10^3u/L Absolute Lymphs (auto) (1.18-3.74) x10^3/uL Absolute Monos (auto) (0.24-0.86) x10^3/uL Absolute Nucleated RBC (0.00-0.012) x10^3u/L Lymphocytes % (19.3-51.7) % Monocytes % (4.7-12.5) % Eosinophils % (0.7-5.8) % Basophils % (0.1-1.2) % Absolute Granulocytes (1.56-6.13) x10^3/uL Basophils # (0.01-0.08) x10^3/uL D-Dimer 1.99 H* (0.0-0.50) mg/L Sodium 141 (135-145) mmol/L Potassium 3.9 (3.5-5.1) mmol/L Chloride 102 (98-107) mmol/L Carbon Dioxide 26 (22-30) mmol/L Anion Gap 16.8 H (5-15) MEQ/L BUN 17 (7-17) mg/dL Creatinine 0.79 (0.52-1.04) mg/dL Estimated GFR 80.9 ML/MIN Glucose 126 H (74-106) mg/dL Calcium 9.8 (8.4-10.2) mg/dL Total Bilirubin 0.50 (0.2-1.3) mg/dL AST 35 (14-36) U/L ALT 27 (0-35) U/L Alkaline Phosphatase 116 (38-126) U/L Troponin I < 0.012 (0.000-0.033) ng/mL Serum Total Protein 7.6 (6.3-8.2) g/dL Albumin 4.7 (3.5-5.0) g/dL 11/06/24 Range/Units 13:46 WBC 4.2 (3.98-10.04) x10^3/uL RBC 4.00 (3.93-5.22) x10^6/uL Hgb 13.6 (11.2-15.7) g/dL Hct 38.6 (34.1-44.9) % MCV 96.5 H (79.4-94.8) fL MCH 34.0 H (25.6-32.2) pg MCHC 35.2 (32.2-35.5) g/dL RDW 14.2 (11.7-14.4) % Plt Count 346 (182-369) x10^3/uL MPV 9.0 L (9.4-12.3) fL Gran % 43.2 (34.0-71.1) % Immature Gran % (Auto) 0.5 H (0.001-0.429) % Nucleat RBC Rel Count 0.0 (0.00-0.2) % Eos # (Auto) 0.19 (0.04-0.36) x10^3/uL Immature Gran # (Auto) 0.02 (0.001-0.031) x10^3u/L Absolute Lymphs (auto) 1.85 (1.18-3.74) x10^3/uL Absolute Monos (auto) 0.30 (0.24-0.86) x10^3/uL Absolute Nucleated RBC 0.00 (0.00-0.012) x10^3u/L Lymphocytes % 44.0 (19.3-51.7) % Monocytes % 7.1 (4.7-12.5) % Eosinophils % 4.5 (0.7-5.8) % Basophils % 0.7 (0.1-1.2) % Absolute Granulocytes 1.81 (1.56-6.13) x10^3/uL Basophils # 0.03 (0.01-0.08) x10^3/uL D-Dimer (0.0-0.50) mg/L Sodium (135-145) mmol/L Potassium (3.5-5.1) mmol/L Chloride (98-107) mmol/L Carbon Dioxide (22-30) mmol/L Anion Gap (5-15) MEQ/L BUN (7-17) mg/dL Creatinine (0.52-1.04) mg/dL Estimated GFR ML/MIN Glucose (74-106) mg/dL Calcium (8.4-10.2) mg/dL Total Bilirubin (0.2-1.3) mg/dL AST (14-36) U/L ALT (0-35) U/L Alkaline Phosphatase (38-126) U/L Troponin I (0.000-0.033) ng/mL Serum Total Protein (6.3-8.2) g/dL Albumin (3.5-5.0) g/dL - Progress Progress: improved Progress Note: I spoke to Dr. Jose G Eid of general surgery at 3:30 PM. We discussed patient's pain at the port site after chemotherapy administration. He advised obtaining a blood culture. He advised a peripheral blood culture and a second culture from the port. This was ordered. We are currently awaiting CTA results. Dr. Eid will follow-up with patient on an outpatient basis. 11/06/24 16:31 they were unable to draw blood culture from the port site. In light of patient's ongoing chest pain patient admitted for cardiac rule out. I discussed the case with Dr. Quiroz 5:34 PM. He accepts admission to observation. Plan of care discussed with patient. Patient agrees to admission at [facility] for further evaluation and treatment. D-dimer positive. CTA chest negative for PE. Portions of this note were created with voice recognition technology. There may be grammatical, spelling, punctuation or sound alike errors Complexity of problem addressed is moderate acute complicated. No critical care time. Complex of data reviewed analyzes extensive. Test ordered chest reviewed results analyzed and correlated clinically with history and physical exam. Management discussed with hospitalist who accepts admission to [facility]. Risk of complication and or risk of morbidity/mortality of patient management is high. Patient requires hospitalization for further evaluation and treatment. Vital stable. Time spent admit patient is approximately 10 minutes. Plan of care established for shared decision making. No social determinants of health present to impede follow-up. Portions of this note were created with voice recognition technology. There may be grammatical, spelling, punctuation or sound alike errors 11/06/24 17:38 Counseled pt/family regarding: diagnosis, need for follow-up, rad results - Departure Departure Disposition: Observation Clinical Impression: Cardiomegaly, Chest pain, ACS (acute coronary syndrome) Condition: Stable Critical Care Time: No Referrals: LESIA SANDERS DO [Primary Care Provider] - Follow up/PCP as directed Additional Instructions: Discharge/Care Plan MARIFER MA was seen on 11/06/24 in the Emergency Room. The patient was counseled regarding Diagnosis,Lab results, Imaging studies, need for follow up and when to return to the Emergency Room. Prescriptions given: Discharge Note I have spoken with the patient and/or caregivers. I have explained the patient's condition, diagnosis and treatment plan based on the information available to me at this time. I have answered the patient's and/or caregiver's questions and addressed any concerns. The patient and/or caregivers have as good understanding of the patient's diagnosis, condition and treatment plan as can be expected at this point. The vital signs have been stable. The patient's condition is stable and appropriate for discharge from the emergency department. The patient will pursue further outpatient evaluation with the primary care physician or other designated or consulting physician as outlined in the discharge instructions. The patient and/or caregivers are agreeable to this plan of care and follow-up instructions have been explained in detail. The patient and/or caregivers have received these instruction. The patient/and or caregivers are aware that any significant change in condition or worsening of symptoms should prompt an immediate return to this or the closest emergency department or call 911.
--- NOTE | 2024-11-06 16:31 | XRAY ---
Indication: Short of breath. Pain. Elevated d-dimer. History colon cancer on current chemotherapy. Multiple contiguous images obtained through the chest using 80 cc Isovue 370 contrast and PE protocol. Comparison: July 25, 2024 There is good opacification pulmonary arteries. However mild respiration artifact limits evaluation more distal lobar and segmental branches. No obvious pulmonary embolus. Heart is now borderline enlarged with new left Port-A-Cath. Aorta again minimally arteriosclerotic without aneurysm. Stable tiny mediastinal and right hilar calcified nodes. No pathologic mediastinal/hilar lymphadenopathy. Lungs demonstrates new moderate right lower lobe and lesser degree left lower lobe subsegmental atelectasis. Remaining lungs again demonstrates incidental tiny calcified granulomas bilaterally. No suspicious pulmonary mass/nodule or effusion. Bony thorax intact again with minimal degenerative changes throughout spine. Limited upper abdomen demonstrates stable tiny hepatic cyst, small left renal cyst, and cholecystectomy clips. Impression: 1. Respiration artifact limits pulmonary embolus evaluation. No obvious pulmonary embolus. 2. New right lower lobe and lesser degree left lower lobe subsegmental atelectasis. 3. New borderline cardiomegaly. 4. Again chronic findings including hepatic cyst, left renal cyst, arteriosclerotic disease, degenerative spondylosis, and old granulomatous disease.
[2024-11-06] MEDS ORDERED: NORCO 5/325 MG ONE (17:12)
[2024-11-06] MEDS: NORCO 5/325 MG PO ONE (17:13)
[2024-11-06] MEDS ORDERED: BABY ASPIRIN 81 MG CHEW ONE (17:42)
[2024-11-06] MEDS: BABY ASPIRIN 81 MG CHEW PO ONE (17:46)
[2024-11-06] MEDS ORDERED: ZOFRAN ODT 4 MG PO PRN (18:55)
--- NOTE | 2024-11-06 18:56 | PCM.HP ---
History of Present Illness - Chief Complaint Chief Complaint: Chest pain, ACS Date: 11/06/24 History of Present Illness: is a 68 year old female currently on chemotherapy for colon cancer and with a remote history of CAD (states she had a MD about 15 years ago without PCI or CABG, and has not had a recent stress test) who presented to the hospital for evaluation of midsternal chest pain. Patient states that pain occurs after her chemotherapy treatments. Patient's last chemotherapy treatment was Tuesday, 6 days ago. Patient describes the pain as a sharp stabbing sensation. Patient believes it is associated with the chemotherapy treatments. Pain tends to radiate to her back neck and shoulders. Pain associated with mild shortness of breath, which worsens with with deep inspiration. Patient currently on [place] pill for pain control. No associated nausea vomiting no diaphoresis. Patient voices no other complaints or concerns at this time. She denies any leg edema or orthopnea. - Review of Systems Constitutional: No Symptoms Eyes: No Symptoms Ears, Nose, & Throat: No Symptoms Respiratory: No Symptoms, Short Of Breath Cardiac: Chest Pain Abdominal/Gastrointestinal: No Symptoms Genitourinary Symptoms: No Symptoms Musculoskeletal: No Symptoms Skin: No Symptoms Neurological: No Symptoms Psychological: No Symptoms Endocrine: No Symptoms Hematologic/Lymphatic: No Symptoms Immunological/Allergic: No Symptoms All Other Systems: Reviewed and Negative Medications & Allergies Home Medications: Home Medication List Hydrocodone/Acetaminophen [Hydrocodone-Acetamin 5-325 mg] 1 tab PO Q6HPRN PRN MDD 4 11/06/24 [History Confirmed 11/06/24] Ondansetron ODT 4 MG [Zofran Odt 4 mg] 8 mg PO Q6HPRN PRN 11/06/24 [History Confirmed 11/06/24] Prochlorperazine Maleate 5 mg* [Compazine 5 MG] 10 mg PO Q12H PRN 11/06/24 [History Confirmed 11/06/24] Allergies/Adverse Reactions: Allergies Allergy/AdvReac Type Severity Reaction Status Date / Time No Known Drug Allergies Allergy Verified 11/06/24 18:19 - Past Medical History Past Medical History: Yes Neurological History: No Pertinent History ENT History: No Pertinent History Cardiac History: High Cholesterol Respiratory History: No Pertinent History Endocrine Medical History: No Pertinent History Musculoskelatal History: No Pertinent History GI Medical History: Gallbladder Disease History: No Pertinent History Pyscho-Social History: No Pertinent History Reproductive Disorders: No Pertinent History Comment: colon cancer stage 3 - Past Surgical History Past Surgical History: Yes Neuro Surgical History: No Pertinent History Cardiac History: No Pertinent History Respiratory Surgery: No Pertinent History GI Surgical History: Bowel Surgery, Cholecystectomy, Colon Resection Genitourinary Surgical Hx: No Pertinent History Musculskeletal Surgical Hx: Orthopedic Surgery Female Surgical History: No Pertinent History Other Surgical History: foot surgery, hands, elbows Significant Family History: other (family history positive for cancer) - Social History Smoking Status: Never smoker Exposure to second hand smoke: No Alcohol: None Drug Use: none - Social Determinants of Health Will the patient participate in the screening: Yes Do you worry about a steady place to live?: No Do you have any problems with any of the following?: No known problems In the past 12 months,have you had to go without utilities?: No Have you or anyone in your house had to go without enough: No Transportation Issues: No Has anyone in your support network made you feel unsafe?: No Does the patient want assistance with any of the above?: No - Physical Exam Vital Signs: Vital Signs - 24 hr Temp Pulse Pulse Resp BP BP Pulse Ox 11/06/24 18:05 97.8 F 86 16 166/87 97 11/06/24 17:42 95 11/06/24 16:30 86 18 136/68 97 11/06/24 16:00 79 18 134/69 94 L 11/06/24 15:30 78 16 152/78 93 L 11/06/24 15:25 72 18 171/75 95 11/06/24 15:00 76 18 151/71 94 L 11/06/24 14:30 76 18 143/78 93 L 11/06/24 14:00 75 18 145/78 95 11/06/24 13:30 82 21 166/87 96 11/06/24 13:26 97.8 F 86 88 18 166/87 98 General Appearance: no apparent distress, alert Neurologic Exam: alert, oriented x 3, cooperative, senior web engineer II-XII nml as tested, normal mood/affect, nml cerebellar function Eye Exam: PERRL/EOMI, eyes nml inspection Ears, Nose, Throat Exam: normal ENT inspection Neck Exam: normal inspection, non-tender, supple, full range of motion Respiratory Exam: normal breath sounds, lungs clear, airway intact Cardiovascular Exam: regular rate/rhythm, normal heart sounds Gastrointestinal/Abdomen Exam: soft, normal bowel sounds Back Exam: normal range of motion Extremity Exam: normal inspection, normal range of motion Skin Exam: normal color Results - Labs Lab/Micro Results: Lab Results-Last 24 Hours 11/06/24 11/06/24 11/06/24 Range/Units 13:46 13:46 13:46 WBC 4.2 (3.98-10.04) x10^3/uL RBC 4.00 (3.93-5.22) x10^6/uL Hgb 13.6 (11.2-15.7) g/dL Hct 38.6 (34.1-44.9) % MCV 96.5 H (79.4-94.8) fL MCH 34.0 H (25.6-32.2) pg MCHC 35.2 (32.2-35.5) g/dL RDW 14.2 (11.7-14.4) % Plt Count 346 (182-369) x10^3/uL MPV 9.0 L (9.4-12.3) fL Gran % 43.2 (34.0-71.1) % Immature Gran % (Auto) 0.5 H (0.001-0.429) % Nucleat RBC Rel Count 0.0 (0.00-0.2) % Eos # (Auto) 0.19 (0.04-0.36) x10^3/uL Immature Gran # (Auto) 0.02 (0.001-0.031) x10^3u/L Absolute Lymphs (auto) 1.85 (1.18-3.74) x10^3/uL Absolute Monos (auto) 0.30 (0.24-0.86) x10^3/uL Absolute Nucleated RBC 0.00 (0.00-0.012) x10^3u/L Lymphocytes % 44.0 (19.3-51.7) % Monocytes % 7.1 (4.7-12.5) % Eosinophils % 4.5 (0.7-5.8) % Basophils % 0.7 (0.1-1.2) % Absolute Granulocytes 1.81 (1.56-6.13) x10^3/uL Basophils # 0.03 (0.01-0.08) x10^3/uL D-Dimer 1.99 H* (0.0-0.50) mg/L Sodium 141 (135-145) mmol/L Potassium 3.9 (3.5-5.1) mmol/L Chloride 102 (98-107) mmol/L Carbon Dioxide 26 (22-30) mmol/L Anion Gap 16.8 H (5-15) MEQ/L BUN 17 (7-17) mg/dL Creatinine 0.79 (0.52-1.04) mg/dL Estimated GFR 80.9 ML/MIN Glucose 126 H (74-106) mg/dL Calcium 9.8 (8.4-10.2) mg/dL Total Bilirubin 0.50 (0.2-1.3) mg/dL AST 35 (14-36) U/L ALT 27 (0-35) U/L Alkaline Phosphatase 116 (38-126) U/L Troponin I (0.000-0.033) ng/mL Serum Total Protein 7.6 (6.3-8.2) g/dL Albumin 4.7 (3.5-5.0) g/dL 11/06/24 Range/Units 13:46 WBC (3.98-10.04) x10^3/uL RBC (3.93-5.22) x10^6/uL Hgb (11.2-15.7) g/dL Hct (34.1-44.9) % MCV (79.4-94.8) fL MCH (25.6-32.2) pg MCHC (32.2-35.5) g/dL RDW (11.7-14.4) % Plt Count (182-369) x10^3/uL MPV (9.4-12.3) fL Gran % (34.0-71.1) % Immature Gran % (Auto) (0.001-0.429) % Nucleat RBC Rel Count (0.00-0.2) % Eos # (Auto) (0.04-0.36) x10^3/uL Immature Gran # (Auto) (0.001-0.031) x10^3u/L Absolute Lymphs (auto) (1.18-3.74) x10^3/uL Absolute Monos (auto) (0.24-0.86) x10^3/uL Absolute Nucleated RBC (0.00-0.012) x10^3u/L Lymphocytes % (19.3-51.7) % Monocytes % (4.7-12.5) % Eosinophils % (0.7-5.8) % Basophils % (0.1-1.2) % Absolute Granulocytes (1.56-6.13) x10^3/uL Basophils # (0.01-0.08) x10^3/uL D-Dimer (0.0-0.50) mg/L Sodium (135-145) mmol/L Potassium (3.5-5.1) mmol/L Chloride (98-107) mmol/L Carbon Dioxide (22-30) mmol/L Anion Gap (5-15) MEQ/L BUN (7-17) mg/dL Creatinine (0.52-1.04) mg/dL Estimated GFR ML/MIN Glucose (74-106) mg/dL Calcium (8.4-10.2) mg/dL Total Bilirubin (0.2-1.3) mg/dL AST (14-36) U/L ALT (0-35) U/L Alkaline Phosphatase (38-126) U/L Troponin I < 0.012 (0.000-0.033) ng/mL Serum Total Protein (6.3-8.2) g/dL Albumin (3.5-5.0) g/dL - Radiology Impressions Radiology Exams & Impressions: Radiology Procedures Category Date Time Status CHEST WITH CONTRAST [CT] Stat Exams 11/06/24 14:15 Completed Assessment/Plan (1) Chest pain Current Visit: Yes Status: Acute Assessment & Plan: Serial enzymes on telemetry. Received ASA. Has remote history of CAD. May need outpatient stress test. Unclear if chemotherapy is contributing to symptoms but they reliably occur following treatments. Not necessarily located around [place]. Would need to discuss with her oncologist. Code(s): R07.9 - CHEST PAIN, UNSPECIFIED (2) Colon cancer Current Visit: Yes Status: Acute Assessment & Plan: Follows with oncology, receiving chemotherapy. (3) Hyperglycemia Current Visit: Yes Status: Acute Assessment & Plan: Mild. Will check A1c. Code(s): R73.9 - HYPERGLYCEMIA, UNSPECIFIED Telemedicine Encounter - Telemedicine Encounter Telemedicine Encounter: "The entirety of this encounter was performed via Telemedicine" This visit was performed using real-time audio and video connection between my location and thepatients locationwith the assistance of a surrogateat the patients location. Written or verbal consent was obtained from the patient/guardian to perform this visit [facility]. Any patient questions regarding the telemedicine interaction were answered. Please note that this admission required 47 minutes to complete.
[2024-11-06] MEDS ORDERED: TYLENOL 325 MG PO PRN (19:01)
[2024-11-06] MEDS: NORCO 5/325 MG PO PRN (22:08)
[2024-11-07] MEDS ORDERED: NORCO 5/325 MG ONE (07:25)
[2024-11-07 08:04] LABS: Hematocrit 34.1 % (34.1-44.9); Hemoglobin 11.9 g/dL (11.2-15.7); Mean Cell Volume 97.7 fL (79.4-94.8); Mean Corpuscular Hemoglobin 34.1 pg (25.6-32.2); Mean Corpuscular Hgb Concent. 34.9 g/dL (32.2-35.5); Mean Platelet Volume 9.3 fL (9.4-12.3); Platelet Count 321 x10^3/uL (182-369); Red Blood Count 3.49 x10^6/uL (3.93-5.22); Red Cell Distribution Width 14.5 % (11.7-14.4); White Blood Count 4.6 x10^3/uL (3.98-10.04)
[2024-11-07 08:14] LABS: ALBUMIN 3.9 g/dL (3.5-5.0); ANION GAP 13.6 MEQ/L (5-15); BILIRUBIN,TOTAL 0.3 mg/dL (0.2-1.3); Calcium 9.4 mg/dL (8.4-10.2); Creatinine 1 0.74 mg/dL (0.52-1.04); EST GLOMERULAR FILTRATION RATE 87.5 ML/MIN; NT PRO BNPII 72.1 pg/mL (<300); Potassium 4.7 mmol/L (3.5-5.1); Total Protein 6.3 g/dL (6.3-8.2)
[2024-11-07] MEDS: ROCEPHIN 1 GM / 100 ML NaCl 1 GM/100 ML IVPB IV SCH (08:51)
[2024-11-07] MEDS: ZITHROMAX IV*** 500 MG in Sodium Chloride 0.9% 250 ML 250 ML IV SCH (09:43)
[2024-11-07] MEDS ORDERED: Lopressor 25MG Tab PO SCH (10:00)
[2024-11-07] MEDS: Compazine 5 MG PO PRN (10:49)
[2024-11-07] MEDS: Lopressor 25MG Tab PO SCH (10:50)
[2024-11-07] MEDS: ENOXAPARIN SODIUM SQ SCH (10:53)
--- NOTE | 2024-11-07 15:51 | PCM.NOTE ---
Date and Time: 11/07/24 1545 Subjective Assessment: 11/07/24 Ms. Burk is a 68-year-old female with a history of colon cancer currently undergoing chemotherapy, and a remote history of coronary artery disease (CAD) and myocardial infarction ([place]) approximately 15 years ago. She presented on 11/06/24 with midsternal chest pain. She reports that the pain occurs after chemotherapy treatments, with her most recent treatment being 6 days ago. The pain is described as a sharp, stabbing sensation that radiates to her back, neck, and shoulders, and is associated with mild shortness of breath that worsens with deep inspiration. She is currently using [place] for pain control and denies nausea, vomiting, diaphoresis, leg edema, or orthopnea. A chest CT revealed right lower lobe (RLL) pneumonia, more prominent than left lower lobe (LLL), and cardiomegaly. IV antibiotics were initiated, and the patient is maintaining room air with an oxygen saturation of 93%. Metoprolol was started for hypertension, and a chest CT ruled out pulmonary embolism (PE) with a D- dimer of 1.99. An echocardiogram was ordered for further evaluation. Additionally, the patient has some redness on her chest, for which Aquaphor was applied. - Review of Systems Constitutional: No Fever, No Chills Eyes: No Symptoms Ears, Nose, & Throat: No Symptoms Respiratory: No Cough, No Short Of Breath Cardiac: Chest Pain, No Edema, No Syncope Abdominal/Gastrointestinal: No Abdominal Pain, No Nausea, No Vomiting, No Diarrhea Genitourinary Symptoms: No Dysuria Musculoskeletal: No Back Pain, No Neck Pain Skin: Other (redness on ceneter of chest), No Rash Neurological: No Dizziness, No Focal Weakness, No Sensory Changes Psychological: No Symptoms Endocrine: No Symptoms Hematologic/Lymphatic: No Symptoms Immunological/Allergic: No Symptoms Objective Exam General Appearance: no apparent distress, alert Neurologic Exam: alert, oriented x 3, cooperative, normal mood/affect, nml cerebellar function, sensation nml, No motor deficits Skin Exam: normal color, warm, dry, other (redness center of chest) Eye Exam: PERRL, EOMI, eyes nml inspection Ears, Nose, Throat Exam: normal ENT inspection, pharynx normal, moist mucous membranes Neck Exam: normal inspection, non-tender, supple, full range of motion Respiratory Exam: normal breath sounds, lungs clear, No respiratory distress Cardiovascular Exam: regular rate/rhythm, normal heart sounds Gastrointestinal/Abdomen Exam: soft, No tenderness, No mass Extremity Exam: normal inspection, normal range of motion Back Exam: normal inspection, normal range of motion, No CVA tenderness, No vertebral tenderness Pelvic Exam: deferred Rectal Exam: deferred Objective Data Vital Signs: Vital Signs - 24 hr Temp Pulse Resp BP BP Pulse Ox 11/07/24 11:57 98.0 F 70 16 157/72 92 L 11/07/24 11:43 93 L 11/07/24 07:33 97.9 F 62 16 168/79 93 L 11/07/24 04:00 97.6 F 70 20 131/78 95 11/06/24 23:14 97.1 F 72 20 137/66 95 11/06/24 20:00 97.7 F 76 22 167/71 95 11/06/24 19:03 77 16 94 L 11/06/24 18:05 97.8 F 86 16 166/87 97 11/06/24 17:42 95 11/06/24 16:30 86 18 136/68 97 11/06/24 16:00 79 18 134/69 94 L Pain Assessment - Last Documented Pain Intensity 8 Pain Scale Used 0-10 Pain Scale Intake and Output: Intake & Output 11/05/24 11/06/24 11/07/24 11/08/24 11:59 11:59 11:59 11:59 Intake Total 1180 380 Balance 1180 380 Weight 69.5 kg Lab Results: Lab Results-Last 24 Hours 11/06/24 11/07/24 11/07/24 Range/Units 21:49 07:25 07:25 WBC 4.6 (3.98-10.04) x10^3/uL RBC 3.49 L (3.93-5.22) x10^6/uL Hgb 11.9 (11.2-15.7) g/dL Hct 34.1 (34.1-44.9) % MCV 97.7 H (79.4-94.8) fL MCH 34.1 H (25.6-32.2) pg MCHC 34.9 (32.2-35.5) g/dL RDW 14.5 H (11.7-14.4) % Plt Count 321 (182-369) x10^3/uL MPV 9.3 L (9.4-12.3) fL Sodium (135-145) mmol/L Potassium (3.5-5.1) mmol/L Chloride (98-107) mmol/L Carbon Dioxide (22-30) mmol/L Anion Gap (5-15) MEQ/L BUN (7-17) mg/dL Creatinine (0.52-1.04) mg/dL Estimated GFR ML/MIN Glucose (74-106) mg/dL Hemoglobin A1c 5.40 (4.5-6.0) % Calcium (8.4-10.2) mg/dL Total Bilirubin (0.2-1.3) mg/dL AST (14-36) U/L ALT (0-35) U/L Alkaline Phosphatase (38-126) U/L Troponin I < 0.012 (0.000-0.033) ng/mL NT-Pro-B Natriuret Pep (<300) pg/mL Serum Total Protein (6.3-8.2) g/dL Albumin (3.5-5.0) g/dL 11/07/24 Range/Units 07:25 WBC (3.98-10.04) x10^3/uL RBC (3.93-5.22) x10^6/uL Hgb (11.2-15.7) g/dL Hct (34.1-44.9) % MCV (79.4-94.8) fL MCH (25.6-32.2) pg MCHC (32.2-35.5) g/dL RDW (11.7-14.4) % Plt Count (182-369) x10^3/uL MPV (9.4-12.3) fL Sodium 141 (135-145) mmol/L Potassium 4.7 D (3.5-5.1) mmol/L Chloride 104 (98-107) mmol/L Carbon Dioxide 29 (22-30) mmol/L Anion Gap 13.6 (5-15) MEQ/L BUN 13 (7-17) mg/dL Creatinine 0.74 (0.52-1.04) mg/dL Estimated GFR 87.5 ML/MIN Glucose 93 (74-106) mg/dL Hemoglobin A1c (4.5-6.0) % Calcium 9.4 (8.4-10.2) mg/dL Total Bilirubin 0.30 (0.2-1.3) mg/dL AST 30 (14-36) U/L ALT 21 (0-35) U/L Alkaline Phosphatase 97 (38-126) U/L Troponin I (0.000-0.033) ng/mL NT-Pro-B Natriuret Pep 72.1 (<300) pg/mL Serum Total Protein 6.3 (6.3-8.2) g/dL Albumin 3.9 (3.5-5.0) g/dL Radiology Exams: Radiology Procedures Category Date Time Status CHEST WITH CONTRAST [CT] Stat Exams 11/06/24 14:15 Completed ECHO W/2D AND DOPPLER [US] Routine Exams 11/07/24 07:44 Taken Assessment/Plan (1) Bilateral pneumonia Current Visit: No Status: Acute Assessment & Plan: - CT chest: Impression: 1. Respiration artifact limits pulmonary embolus evaluation. No obvious pulmonary embolus. 2. New right lower lobe and lesser degree left lower lobe subsegmental atelectasis. 3. New borderline cardiomegaly. 4. Again chronic findings including hepatic cyst, left renal cyst, arteriosclerotic disease, degenerative spondylosis, and old granulomatous disease. - Ceftriaxone, azithromycin - Room air 93% - Lungs clear Code(s): J18.9 - PNEUMONIA, UNSPECIFIED ORGANISM (2) Cardiomegaly Current Visit: Yes Status: Acute Assessment & Plan: - As seen on CT - Echo - tele Code(s): I51.7 - CARDIOMEGALY (3) Elevated d-dimer Current Visit: Yes Status: Acute Assessment & Plan: - D-Dimer 1.99 - CTA negative for PE Code(s): R79.89 - OTHER SPECIFIED ABNORMAL FINDINGS OF BLOOD CHEMISTRY (4) Chest pain Current Visit: Yes Status: Acute Assessment & Plan: - Likely 2:2 pneumonia - Trop x2 negative - EKG - TELE - Echo - CBC. CMP reviewed - Consider diff GERD 2:2 chemo Code(s): R07.9 - CHEST PAIN, UNSPECIFIED (5) Colon cancer Current Visit: Yes Status: Chronic Assessment & Plan: - Follows with oncology, receiving chemotherapy. VTE: Lovenox PPI: protonix Next of KIN: Spouse, Juanjose [phone] D/C plan: tomorrow Code status: Full
[2024-11-07] MEDS: Protonix 20MG Tablet PO SCH (17:36)
[2024-11-07] MEDS: AQUAPHOR OINTMENT 50 GM TP SCH (22:55)
[2024-11-08 05:35] LABS: Hematocrit 35.8 % (34.1-44.9); Hemoglobin 12.1 g/dL (11.2-15.7); Mean Cell Volume 98.9 fL (79.4-94.8); Mean Corpuscular Hemoglobin 33.4 pg (25.6-32.2); Mean Corpuscular Hgb Concent. 33.8 g/dL (32.2-35.5); Platelet Count 312 x10^3/uL (182-369); Red Blood Count 3.62 x10^6/uL (3.93-5.22); Red Cell Distribution Width 14.3 % (11.7-14.4); White Blood Count 5.9 x10^3/uL (3.98-10.04)
[2024-11-08 07:09] LABS: ANION GAP 14.8 MEQ/L (5-15); BILIRUBIN,TOTAL 0.3 mg/dL (0.2-1.3); Calcium 9.1 mg/dL (8.4-10.2); Creatinine 1 0.73 mg/dL (0.52-1.04); Potassium 4.2 mmol/L (3.5-5.1); Total Protein 6.6 g/dL (6.3-8.2)
[2024-11-08 08:38] VITALS: BP 143/67; PULSE 60; RESP 20; TEMP 97.6; O2SAT 93
--- NOTE | 2024-11-08 10:14 | PCM.DS ---
Discharge Summary Date of Admission: 11/06/24 17:53 Date of Discharge: 11/08/24 Admitting Physician: GRISEL ROLLINS MD Primary Care Provider: LESIA SANDERS DO Allergies Allergies No Known Drug Allergies Allergy (Verified 11/06/24 18:19) Hospital Summary - Hospital Course Hospital Course: 11/07/24 Ms. Burk is a 68-year-old female with a history of colon cancer currently undergoing chemotherapy, and a remote history of coronary artery disease (CAD) and myocardial infarction ([place]) approximately 15 years ago. She presented on 11/06/24 with midsternal chest pain. She reports that the pain occurs after chemotherapy treatments, with her most recent treatment being 6 days ago. The pain is described as a sharp, stabbing sensation that radiates to her back, neck, and shoulders, and is associated with mild shortness of breath that worsens with deep inspiration. She is currently using [place] for pain control and denies nausea, vomiting, diaphoresis, leg edema, or orthopnea. A chest CT revealed right lower lobe (RLL) pneumonia, more prominent than left lower lobe (LLL), and cardiomegaly. IV antibiotics were initiated, and the patient is berry ntaining room air with an oxygen saturation of 93%. Metoprolol was started for hypertension, and a chest CT ruled out pulmonary embolism (PE) with a D-dimer of 1.99. An echocardiogram was ordered for further evaluation. Additionally, the patient has some redness on her chest, for which Aquaphor was applied. 11/08/24 Pt resting in bed. She is feeling much better and would like to go home today. Labs overall improved. Will d/c with antibiotics for pneumonia. She denies CP, SOB, abd. pain, N/V/D. - Vitals & Intake/Output Vital Signs: Vital Signs Temperature 97.6 F 11/08/24 08:00 Pulse Rate 60 11/08/24 08:00 Respiratory Rate 20 11/08/24 08:00 Blood Pressure 143/67 11/08/24 08:00 O2 Sat by Pulse Oximetry 93 L 11/08/24 08:00 Intake & Output: Intake & Output 11/05/24 11/06/24 11/07/24 11/08/24 11:59 11:59 11:59 11:59 Intake Total 1180 2101 Balance 1180 2101 Weight 69.5 kg - Lab Result Diagrams: 11/08/24 05:20 11/08/24 05:20 Lab Results-Last 24 Hrs: Lab Results-Last 24 Hours 11/08/24 11/08/24 Range/Units 05:20 05:20 WBC 5.9 (3.98-10.04) x10^3/uL RBC 3.62 L (3.93-5.22) x10^6/uL Hgb 12.1 (11.2-15.7) g/dL Hct 35.8 (34.1-44.9) % MCV 98.9 H (79.4-94.8) fL MCH 33.4 H (25.6-32.2) pg MCHC 33.8 (32.2-35.5) g/dL RDW 14.3 (11.7-14.4) % Plt Count 312 (182-369) x10^3/uL MPV 9.0 L (9.4-12.3) fL Sodium 140 (135-145) mmol/L Potassium 4.2 (3.5-5.1) mmol/L Chloride 105 (98-107) mmol/L Carbon Dioxide 25 (22-30) mmol/L Anion Gap 14.8 (5-15) MEQ/L BUN 11 (7-17) mg/dL Creatinine 0.73 (0.52-1.04) mg/dL Estimated GFR 89.0 ML/MIN Glucose 103 (74-106) mg/dL Calcium 9.1 (8.4-10.2) mg/dL Total Bilirubin 0.30 (0.2-1.3) mg/dL AST 31 (14-36) U/L ALT 26 (0-35) U/L Alkaline Phosphatase 92 (38-126) U/L Serum Total Protein 6.6 (6.3-8.2) g/dL Albumin 4.0 (3.5-5.0) g/dL - Radiology Exams Ordered Rad Exams-Entire Visit: Radiology Procedures Category Date Time Status CHEST WITH CONTRAST [CT] Stat Exams 11/06/24 14:15 Completed ECHO W/2D AND DOPPLER [US] Routine Exams 11/07/24 07:44 Taken - Procedures and Test Procedures and Tests throughout Hospitalization: Therapy Orders & Screens 11/06/24 19:01 EKG REPEAT IN AM Comment: Diagnosis: Chest pain, ACS 11/06/24 19:21 Incentive Spirometry UD Comment: Diagnosis: Chest pain, ACS Respiratory Therapy Assessment DAILY Comment: Diagnosis: Chest pain, ACS Discharge Exam General Appearance: no apparent distress, alert Neurologic Exam: alert, oriented x 3, cooperative, normal mood/affect, nml cerebellar function, sensation nml, No motor deficits Eye Exam: PERRL, EOMI, eyes nml inspection Ears, Nose, Throat Exam: normal ENT inspection, pharynx normal, moist mucous membranes Neck Exam: normal inspection, non-tender, supple, full range of motion Respiratory Exam: normal breath sounds, lungs clear, No respiratory distress Cardiovascular Exam: regular rate/rhythm, normal heart sounds Gastrointestinal/Abdomen Exam: soft, No tenderness, No mass Pelvic Exam: deferred Rectal Exam: deferred Back Exam: normal inspection, normal range of motion, No CVA tenderness, No vertebral tenderness Extremity Exam: normal inspection, normal range of motion Skin Exam: normal color, warm, dry Final Diagnosis/Problem List - Final Discharge Diagnosis/Problem (1) Bilateral pneumonia Current Visit: No Status: Acute Code(s): J18.9 - PNEUMONIA, UNSPECIFIED ORGANISM (2) Cardiomegaly Current Visit: Yes Status: Acute Code(s): I51.7 - CARDIOMEGALY (3) Elevated d-dimer Current Visit: Yes Status: Acute Code(s): R79.89 - OTHER SPECIFIED ABNORMAL FINDINGS OF BLOOD CHEMISTRY (4) Chest pain Current Visit: Yes Status: Acute Code(s): R07.9 - CHEST PAIN, UNSPECIFIED (5) Colon cancer Current Visit: Yes Status: Chronic Assessment & Plan: (1) Bilateral pneumonia Current Visit: No Status: Acute Assessment & Plan: - CT chest: Impression: 1. Respiration artifact limits pulmonary embolus evaluation. No obvious pulmonary embolus. 2. New right lower lobe and lesser degree left lower lobe subsegmental atelectasis. 3. New borderline cardiomegaly. 4. Again chronic findings including hepatic cyst, left renal cyst, arteriosclerotic disease, degenerative spondylosis, and old granulomatous disease. - Ceftriaxone, azithromycin - Room air 93% - Lungs clear - CBC, CMP reviewed 11/08 - CBC, CMP reviewed - Room air - lungs clear - Will d/c with PO antibiotic Code(s): J18.9 - PNEUMONIA, UNSPECIFIED ORGANISM (2) Cardiomegaly Current Visit: Yes Status: Acute Assessment & Plan: - As seen on CT - Echo- f/u OP with PCP as results are not back to review - Consider referral to cardiology based on findings - tele Code(s): I51.7 - CARDIOMEGALY (3) Elevated d-dimer Current Visit: Yes Status: Acute Assessment & Plan: - D-Dimer 1.99 - CTA negative for PE Code(s): R79.89 - OTHER SPECIFIED ABNORMAL FINDINGS OF BLOOD CHEMISTRY (4) Chest pain Current Visit: Yes Status: Acute Assessment & Plan: - Likely 2:2 pneumonia - Trop x2 negative - EKG - TELE - Echo- pending reading - CBC. CMP reviewed - Consider diff GERD 2:2 chemo 11/08 - resolved Code(s): R07.9 - CHEST PAIN, UNSPECIFIED (5) Colon cancer Current Visit: Yes Status: Chronic Assessment & Plan: - Follows with oncology, receiving chemotherapy. - F/U OP with oncology (6) Hypertension Current Visit: Yes Status: Acute Assessment & Plan: 11/07 - Started metoprolol 25mg BID 11/08 - BP stable - Will continue BP meds OP- F/U with PCP Code(s): I10 - ESSENTIAL (PRIMARY) HYPERTENSION - Discharge Discharge Date: 11/08/24 Disposition: Home, Self-Care Condition: Stable Prescriptions: [place] Oil/Pet Hy-Phl 50 gm [Aquaphor Ointment 50 gm] 0 gm TP BID Metoprolol Tartrate 25 mg [Lopressor 25MG Tab] 25 mg PO BID 30 Days #60 tablet Continue Ondansetron ODT 4 MG [Zofran Odt 4 mg] 8 mg PO Q6HPRN PRN PRN Reason: Nausea Prochlorperazine Maleate 5 mg* [Compazine 5 MG] 10 mg PO Q12H PRN PRN Reason: Nausea Hydrocodone/Acetaminophen [Hydrocodone-Acetamin 5-325 mg] 1 tab PO Q6HPRN PRN MDD 4 PRN Reason: Pain Follow up with: [facility] [employer] [facility] [[employer] STAFF] - 11/14/24 10:00 am
== END 2024-11-08 11:20 | disposition home or self-care (01) ==
LOC: ED 13:22 → MED SURG 17:53
PROVIDERS: ADMIT Internal Medicine; ATTEND Internal Medicine
DX: J18.9 Pneumonia, unspecified organism (principal); I51.7 Cardiomegaly; R79.89 Other specified abnormal findings of blood chemistry; R07.9 Chest pain, unspecified; C18.9 Malignant neoplasm of colon, unspecified; I10 Essential (primary) hypertension; Z79.899 Other long term (current) drug therapy; I25.10 Atherosclerotic heart disease of native coronary artery without angina pectoris
CPT/HCPCS: 36415; 71260; 80053; 83036; 83880; 84484; 85025; 85027; 85379; 93005; 93306; 94760; 96374; 96375; 99285; Q3014; 93268; J0456; J0696; J2270; J2405; A9270-GY; G0378